=== PATIENT | female | born 1950 | race Caucasian/White ===

== ENCOUNTER 2020-03-20 08:18 | Emergency (ER) | payer MEDICARE, BC ==
[2020-03-20 08:26] VITALS: RESP 18; TEMP 98.5
[2020-03-20] MEDS ORDERED: KETOROLAC 15 MG/ML 1 ML VIAL IVP STA (08:50)
[2020-03-20] MEDS ORDERED: ORPHENADRINE 30 MG/ML 2 ML VIAL IVP STA (08:50)
[2020-03-20] MEDS ORDERED: SODIUM CHLORIDE 0.9% 1,000 ML IV STA (08:50)
--- NOTE | 2020-03-20 08:54 | ED ---
Back Pain HPI - General Chief Complaint: Back Pain/Injury Stated Complaint: back pain Time Seen by Provider: 03/20/20 08:35 Source: patient, family, RN notes reviewed Limitations: no limitations - History of Present Illness Initial Comments: This is a 71-year-old female history of lumbar fusion of L4-L5 no history kidney stones no recent trauma or infections who states that around 2 AM this morning while doing a crossword puzzle started developing severe right side flank pain the pain is intermittent. He states at rest is 4/10 dull in nature and is worse it's 89/10. He gets worse with certain movements. No dysuria hematuria no other symptoms reported MD Complaint: back pain - Related Data Home Medications Medication Instructions Recorded Confirmed Cholecalciferol [Vitamin D3] 2,000 unit PO DAILY 11/27/14 03/20/20 Metoprolol Succinate [Toprol XL] 25 mg PO DAILY 11/27/14 03/20/20 Albuterol Sulfate [Ventolin HFA] 2 puff INHALATION Q6H PRN 03/20/20 03/20/20 Calcium Carbonate [Calcium] 1,200 mg PO DAILY 03/20/20 03/20/20 Famotidine 20 mg PO BID 03/20/20 03/20/20 HYDROcodone/APAP 5-325MG [[place] 1 tab PO Q4HR PRN 03/20/20 03/20/20 5-325] Mometasone Inhalr 220 Mcg/Puff 1 puff INHALATION RT-DAILY 03/20/20 03/20/20 [Asmanex] Montelukast Sodium [Singulair] 10 mg PO HS 03/20/20 03/20/20 Vitamin B Complex/ C 1 tab PO DAILY 03/20/20 03/20/20 Previous Rx's Medication Instructions Recorded Hydrocodone/Acetaminophen [[place] 1 each PO Q6HR PRN #20 tab 03/20/20 5-325] Ibuprofen 800 mg PO Q6HR PRN #20 tablet 03/20/20 Orphenadrine [Norflex] 100 mg PO Q12H #7 tablet.er 03/20/20 Allergies Allergy/AdvReac Type Severity Reaction Status Date / Time No Known Allergies Allergy Verified 03/20/20 09:43 Review of Systems ROS Statement: Those systems with pertinent positive or pertinent negative responses have been documented in the HPI. ROS Other: All systems not noted in ROS Statement are negative. Past Medical History Past Medical History: Asthma, Hypertension History of Any Multi-Drug Resistant Organisms: None Reported Additional Past Surgical History / Comment(s): BILAT CATRACTS REMOVED, 12-06-14 TOTAL LT KNEE ARTHROPLASTY. COONOSCOPY. EGD. LT EAR STAPEDECTOMY. spinal fusion. Past Psychological History: No Psychological Hx Reported Smoking Status: Never smoker Past Alcohol Use History: Occasional Past Drug Use History: None Reported - Past Family History Father Family Medical History: Cancer, Hypertension Additional Family Medical History / Comment(s): PROSTATE CA Mother Family Medical History: Hypertension, Myocardial Infarction (RI), Osteoarthritis (OA) General Exam - General Exam Comments Initial Comments: This a well-developed well-nourished awake alert oriented 3 female Limitations: no limitations General appearance: alert, anxious, in distress Head exam: Present: atraumatic, normocephalic, normal inspection Eye exam: Present: normal appearance, PERRL, EOMI. Absent: scleral icterus, conjunctival injection, periorbital swelling ENT exam: Present: normal exam, mucous membranes moist Neck exam: Present: normal inspection. Absent: tenderness, meningismus, lymphadenopathy Respiratory exam: Present: normal lung sounds bilaterally. Absent: respiratory distress, wheezes, rales, rhonchi, stridor Cardiovascular Exam: Present: regular rate, normal rhythm, normal heart sounds. Absent: systolic murmur, diastolic murmur, rubs, gallop, clicks GI/Abdominal exam: Present: soft, normal bowel sounds. Absent: distended, tenderness, guarding, rebound, rigid, bruit, pulsatile mass Extremities exam: Present: normal inspection, full ROM, normal capillary refill. Absent: tenderness, pedal edema, joint swelling, calf tenderness Back exam: Present: normal inspection, other (100 range of motion secondary to her pain). Absent: full ROM, tenderness, CVA tenderness (R), CVA tenderness (L), muscle spasm, paraspinal tenderness Neurological exam: Present: alert, oriented X3, CN II-XII intact Psychiatric exam: Present: normal affect, normal mood Skin exam: Present: warm, dry, intact, normal color. Absent: rash Course Vital Signs 03/20/20 03/20/20 08:22 10:48 Temperature 98.5 F Pulse Rate 70 60 Respiratory 18 18 Rate Blood Pressure 172/87 169/70 O2 Sat by Pulse 99 97 Oximetry Medical Decision Making - Medical Decision Making Reevaluation patient finds she feels improved she would like to go home she'll be discharged on appropriate medication she is a follow-up with her doctor and return when necessary - Lab Data Result diagrams: 03/20/20 09:00 03/20/20 09:00 Lab Results 03/20/20 03/20/20 03/20/20 Range/Units 09:00 09:00 09:39 WBC 10.1 (3.8-10.6) k/uL RBC 5.41 H (3.80-5.40) m/uL Hgb 15.1 (11.4-16.0) gm/dL Hct 47.6 H (34.0-46.0) % MCV 88.0 (80.0-100.0) fL MCH 28.0 (25.0-35.0) pg MCHC 31.9 (31.0-37.0) g/dL RDW 13.5 (11.5-15.5) % Plt Count 222 (150-450) k/uL MPV 6.9 Neutrophils % 58 % Lymphocytes % 33 % Monocytes % 5 % Eosinophils % 2 % Basophils % 0 % Neutrophils # 5.9 (1.3-7.7) k/uL Lymphocytes # 3.4 (1.0-4.8) k/uL Monocytes # 0.5 (0-1.0) k/uL Eosinophils # 0.2 (0-0.7) k/uL Basophils # 0.0 (0-0.2) k/uL Sodium 137 (137-145) mmol/L Potassium 4.4 (3.5-5.1) mmol/L Chloride 106 (98-107) mmol/L Carbon Dioxide 25 (22-30) mmol/L Anion Gap 6 mmol/L BUN 17 (7-17) mg/dL Creatinine 0.70 (0.52-1.04) mg/dL Est GFR (CKD-EPI)AfAm >90 (>60 ml/min/1.73 sqM) Est GFR (CKD-EPI)NonAf 87 (>60 ml/min/1.73 sqM) Glucose 101 H (74-99) mg/dL Calcium 9.3 (8.4-10.2) mg/dL Magnesium 2.0 (1.6-2.3) mg/dL Total Bilirubin 0.8 (0.2-1.3) mg/dL AST 31 (14-36) U/L ALT 43 H (4-34) U/L Alkaline Phosphatase 67 (38-126) U/L Creatine Kinase 48 (30-135) U/L Total Protein 7.1 (6.3-8.2) g/dL Albumin 4.2 (3.5-5.0) g/dL Lipase 31 (23-300) U/L Urine Color Yellow Urine Appearance Cloudy H (Clear) Urine pH 7.5 (5.0-8.0) Ur Specific [place] 1.014 (1.001-1.035) Urine Protein Negative (Negative) Urine Glucose (UA) Negative (Negative) Urine Ketones Negative (Negative) Urine Blood Negative (Negative) Urine Nitrite Negative (Negative) Urine Bilirubin Negative (Negative) Urine Urobilinogen <2.0 (<2.0) mg/dL Ur Leukocyte Esterase Small H (Negative) Urine RBC 1 (0-5) /hpf Urine WBC 3 (0-5) /hpf Ur Squamous Epith Cells 1 (0-4) /hpf Urine Mucus Rare H (None) /hpf - Radiology Data Radiology results: report reviewed (Imaging reviewed no acute findings), image reviewed Disposition Clinical Impression: Mechanical back pain Disposition: HOME SELF-CARE Condition: Good Instructions (If sedation given, give patient instructions): Acute Low Back Pain (ED) Prescriptions: Ibuprofen 800 mg PO Q6HR PRN #20 tablet PRN Reason: Pain Hydrocodone/Acetaminophen [[place] 5-325] 1 each PO Q6HR PRN #20 tab PRN Reason: Pain Orphenadrine [Norflex] 100 mg PO Q12H #7 tablet.er Is patient prescribed a controlled substance at d/c from ED?: Yes When asked, does pt state using other controlled substances?: No If prescribed controlled substance>3 days was MAPS reviewed?: Yes If opioid is for acute pain is fill amount 7 days or less?: Yes If Rx opioid, was Start Talking consent form obtained?: Yes Referrals: Robb Bobo MD [Primary Care Provider] - 1-2 days
[2020-03-20 09:13] LABS: Basophils % (A) 0 %; Eosinophils # (A) 0.2 k/uL (0-0.7); Eosinophils % (A) 2 %; HCT 47.6 % (34.0-46.0); HGB 15.1 gm/dL (11.4-16.0); Lymphocytes # (A) 3.4 k/uL (1.0-4.8); Lymphocytes % (A) 33 %; MCHC 31.9 g/dL (31.0-37.0); Mean Platelet Volume 6.9; Monocytes # (A) 0.5 k/uL (0-1.0); Monocytes % (A) 5 %; Neutrophils # (A) 5.9 k/uL (1.3-7.7); Neutrophils % (A) 58 %; Platelet Count 222 k/uL (150-450); RBC 5.41 m/uL (3.80-5.40); RDW 13.5 % (11.5-15.5); WBC 10.1 k/uL (3.8-10.6)
[2020-03-20 09:26] LABS: ALT 43 U/L (4-34); AST 31 U/L (14-36); African American GFR (CKD) >90 (>60 ml/min/1.73 sqM); Albumin 4.2 g/dL (3.5-5.0); Alkaline Phosphatase 67 U/L (38-126); Anion Gap 6 mmol/L; Blood Urea Nitrogen 17 mg/dL (7-17); Calcium 9.3 mg/dL (8.4-10.2); Carbon Dioxide 25 mmol/L (22-30); Chloride 106 mmol/L (98-107); Creatine Kinase 48 U/L (30-135); Glucose 101 mg/dL (74-99); Lipase 31 U/L (23-300); Non-African American GFR(CKD) 87 (>60 ml/min/1.73 sqM); Potassium 4.4 mmol/L (3.5-5.1); Sodium 137 mmol/L (137-145); Total Bilirubin 0.8 mg/dL (0.2-1.3); Total Protein 7.1 g/dL (6.3-8.2)
[2020-03-20 09:52] LABS: Appearance,Urine Cloudy (Clear); Bilirubin,Urine Negative (Negative); Blood,Urine Negative (Negative); Color,Urine Yellow; Glucose,Urine (UA) Negative (Negative); Ketones,Urine Negative (Negative); Leukocyte Esterase,Urine Small (Negative); Mucus,Urine Rare /hpf; Nitrite,Urine Negative (Negative); PH, Urine 7.5 (5.0-8.0); Protein,Urine Negative (Negative); RBC,Urine 1 /hpf (0-5); Specific Gravity,Urine 1.014 (1.001-1.035); Squamous Epithelial Cell,Urine 1 /hpf (0-4); Urobilinogen,Urine <2.0 mg/dL (<2.0); WBC,Urine 3 /hpf (0-5)
[2020-03-20] MEDS ORDERED: HYDROmorphone 1 MG/ML 1 ML SYRINGE IVP STA (10:34)
--- NOTE | 2020-03-20 11:28 | CT ---
EXAMINATION TYPE: CT abdomen pelvis wo con DATE OF EXAM: 03/20/2020 HISTORY: Right sided flank pain CT DLP: 976.2 mGycm. Automated Exposure Control for Dose Reduction was Utilized. TECHNIQUE: CT scan of the abdomen and pelvis is performed without oral or IV contrast. COMPARISON: NONE FINDINGS: Within the limitations of a non-contrast study, the following observations are made. LUNG BASES: Tiny left pleural effusion and/or pleural thickening mild bibasilar linear scarring and/o r atelectasis. Mild cardiomegaly. LIVER/GB: Liver is heterogeneously hypodense consistent with diffuse fatty infiltration. Prominent ri ght hepatic lobe noted. Gallbladder surgically absent. PANCREAS: Mild generalized fat replaced atrophy. SPLEEN: Nonspecific subcentimeter hypodense lesion centrally in the spleen representing benign. ADRENALS: Small 1.4 cm left adrenal mass coronal image 70 contains fat and soft tissue density presum ed benign myolipoma. KIDNEYS: No renal stones or hydronephrosis is present bilaterally. BOWEL: Small size hiatal hernia. Few scattered small sigmoid colonic diverticula. No suspicious small or large bowel dilatation. GENITAL ORGANS: The uterus surgically absent. Scattered bilateral pelvic phleboliths. LYMPH NODES: No greater than 1cm abdominal or pelvic lymph nodes are appreciated. OSSEOUS STRUCTURES: Grade 1 anterolisthesis L4 on L5. Posterior interpedicular rods and screws transf ix these levels. Moderate to severe narrowing in both hip joints with mild to moderate acetabular spu rring bilaterally. OTHER: No significant additional abnormality is seen. IMPRESSION: No renal stones or hydronephrosis is seen bilaterally. No acute findings identified.
[2020-03-20 13:22] VITALS: BP 159/78; PULSE 68
== END 2020-03-20 13:21 | disposition home or self-care (01) ==
LOC: EC 08:18
DX: M54.9 Dorsalgia, unspecified (principal); I10 Essential (primary) hypertension; J45.909 Unspecified asthma, uncomplicated; Z79.899 Other long term (current) drug therapy; Z79.51 Long term (current) use of inhaled steroids; Z98.1 Arthrodesis status; Z96.652 Presence of left artificial knee joint
CPT/HCPCS: 36415; 80053; 82550; 83690; 83735; 85025; 81001; 74176; 99284; 96374; 96375 ×2; 96361 ×4; J2360; J1170; J1885

== ENCOUNTER → 2021-01-29 | Outpatient (CLI) | payer MEDICARE, BC ==
--- NOTE | 2021-01-29 15:53 | CT ---
EXAMINATION TYPE: CT lumbar spine wo con DATE OF EXAM: 01/29/2021 3:42 PM COMPARISON: None HISTORY: chronic low back pain, no injury CT DLP: 1485.4 mGycm Automated exposure control for dose reduction was used. Unenhanced CT of the lumbar spine was performed. Bone and soft tissue window settings are submitted as well as coronal and sagittal reconstructions. L1-L2: Normal disc space height. No disc herniation protrusion or central stenosis. No facet joint arthropathy. No evidence for foraminal encroachment. L2-L3: Normal disc space height. No disc herniation protrusion or central stenosis. No facet joint arthropathy. No evidence for foraminal encroachment. L3-L4: Mild degenerative disc space narrowing with posterior disc bulge. Effacement ventral thecal sa c. Bilateral lateral recess stenosis and mild central stenosis suggested. Bilateral foraminal encroac hment. L4-L5: Mild degenerative disc space narrowing. Grade 1 anterolisthesis L4 and L5 measuring 3.2 mm. Po stoperative change of lumbar laminectomy with pedicular screws in place. Streak artifact limits evalu ation. No definite evidence for recurrent or residual disease. L5-S1: Normal disc space height. No disc herniation protrusion or central stenosis. No facet joint arthropathy. No evidence for foraminal encroachment. IMPRESSION: 1. Postoperative changes of lumbar laminectomy and fusion at L4-5 with grade 1 anterolisthesis of L4 on L5. No evidence for recurrent or residual disease. 2. Bilateral lateral recess stenosis and mild central stenosis at L3-4.
== END | disposition home or self-care (01) ==
LOC: RADCTMAIN 15:04
PROVIDERS: ATTEND Neurological Surgery
DX: M48.061 Spinal stenosis, lumbar region without neurogenic claudication (principal); M43.16 Spondylolisthesis, lumbar region; Z98.1 Arthrodesis status
CPT/HCPCS: 72131

== ENCOUNTER → 2021-05-21 | Outpatient (CLI) | payer MEDICARE, BC ==
--- NOTE | 2021-05-21 12:57 | P.CON ---
Consult Note - . Consult date: 05/21/21 Assessment/Plan:: HISTORY OF PRESENT ILLNESS: 71 year old female as a referral from Dr. Cooper with a history of lumbar degenerative joint disease, spondylolisthesis, disc bulges with facet arthropathy presents today for an evaluation. Patient states her lower back pain is in the center of her lumbar spine, 1 out of 10 in intensity on a good day, but elevates as high as 6 out of 10 in intensity with activity. States the pain is dull and achy in character without radiation. Pain is provoked with standing, walking, stair climbing and bending. Pain is relieved with medications, heat, physical therapy missed with massage in 2017 and 2018, chi ropractic treatments in 2018 and rest. PMH: Asthma, HTN, OA, GERD, Vitamin D Deficiency, L knee DJD PSH: L knee TKA, Lumbar laminectomy with fusion of the L3-L4 SH: Denies x 3 FH: Non contributory All: NKDA Meds: See list REVIEW OF ORGAN SYSTEMS: CONSTITUTIONAL: No fevers or chills. No recent weight loss. HEENT: No visual acuity loss, eye pain, difficulties with hearing. No nosebleeds. No difficulty swallowing. RESPIRATORY: Denies any troubles with breathing or dyspnea on exertion. CARDIOVASCULAR: Denies any chest pain, palpitations, or recent heart attacks. GASTROINTESTINAL: Denies fatty food intolerance. Has change in bowel habits and gas bloat. GENITOURINARY: Denies any blood in urine. Has increased urinary frequency. NEUROLOGICAL: + numbness and tingling along the distal extremities. No seizure disorders or headaches. MUSCULOSKELETAL: + back pain SKIN: No skin cancer. No rash. PSYCHIATRIC: Denies current depression or suicidal thoughts. ENDOCRINE: Denies current thyroid disorders. Denies any blood sugar glucose intolerance. HEME/LYMPHATIC: Denies any lumps and bumps around the neck. History of deep venous thrombosis. ALLERGY/IMMUNOLOGY: No immunoglobulin therapy. No immune deficiencies. BREAST: Denies current breast lumps, pain or nipple discharge. Physical Examinations : Constitutional : Cooperative , not in acute distress . HEENT: Neck supple. No Lymphadenopathy. Normal thyroid size . Eyes no ptosis , no icterus, no photophobia . Hearing intact. Normal oropharynx. No Thrush. Respiratory : Chest clear to auscultations bilaterally. No wheezing. No rhonchi. Cardiovascular : Regular rate and rhythm , S1 / S2. No S3 . No S4. Gastrointestinal : Abdomen soft. No tenderness. Bowel sounds x 4. No organomegaly . Genitourinary : Deferred. Neurologic : Cranial nerve II to XII intact. No focal neurological deficits. Psychiatric : alert & oriented x 3. Matching mood & appropriate affect. Judgment & insight intact. Lymphatic No Lymphadenopathy. Musculoskeletal : Cervical Spine Motor strength in the deltoid and biceps: Normal right side. Normal Left side Motor strength biceps and the wrist extensors: Normal right side . Normal left side Motor strength in the triceps muscle: Normal right side. Normal left side Deep tendon reflexes: Normal at the biceps. Normal at Brachioradialis. Normal at triceps Cervical facet loading test: positive bilaterally Spurling test: positive bilaterally Neck distraction test: positive bilaterally Whit sign: positive bilaterally Lumbar spine Motor strength lower extremities ,thigh and legs 5/5 Right side , 5/5 Left side Deep tendon reflexes : Normal Knee Jerk. Normal Ankle Jerk Moderate vertebral body tenderness over the L4 and L5 Lumbar facet Loading Test: positive Right / positive Left at bilateral L3-L4 and L4 -L5 Range of motion of the lumbar spine Flexion 30 degrees, extension 10 degrees Straight Leg Raise test: Left/ Right positive at degree Tim test: positive right / positive left. Severe tenderness over the Sacroiliac joint on the Right / Left sides Gaenslen test: positive bilaterally Seated flexion test: positive bilaterally. Assessment/ Plan : Recommendation LESI of the L4 to L5 Discussed a series of injections may be needed to attain sufficient pain relief Also discussed that patient may need facet blocks of the medial branches up until RFA as needed Risks, benefits of procedure discussed and patient verbalized understanding Discontinue aspirin 3 days prior to procedure All questions answered I have spent greater than 50 minutes on patient care today. Dr Benson was available by phone for the evaluation of this patient. The time was used to review the medical records including relevant urine studies and Prescription history (MAPs), review of the available imaging, evaluation and examination of the patient, coordination of care with the medical staff and if applicable referring physicians, as well as creation of the medical record PQRS Measure Charge Sheet Home Medications: Ambulatory Orders Cholecalciferol [Vitamin D3] 2,000 unit PO DAILY 11/27/14 Metoprolol Succinate [Toprol XL] 25 mg PO DAILY 08/19/15 Albuterol Sulfate [Ventolin HFA] 2 puff INHALATION Q6H PRN 03/20/20 Calcium Carbonate [Calcium] 1,200 mg PO DAILY 03/20/20 Famotidine 20 mg PO BID 03/20/20 HYDROcodone/APAP 5-325MG [[place] 5-325] 1 tab PO Q4HR PRN 03/20/20 Hydrocodone/Acetaminophen [[place] 5-325] 1 each PO Q6HR PRN #20 tab 03/20/20 Ibuprofen 800 mg PO Q6HR PRN #20 tablet 03/20/20 Mometasone Inhalr 220 Mcg/Puff [Asmanex] 1 puff INHALATION RT-DAILY 03/20/20 Montelukast Sodium [Singulair] 10 mg PO HS 03/20/20 Orphenadrine [Norflex] 100 mg PO Q12H #7 tablet.er 03/20/20 Vitamin B Complex/ C 1 tab PO DAILY 03/20/20
[2021-05-21 13:45] VITALS: BP 148/89; PULSE 66; RESP 18; TEMP 97.9
== END ==
LOC: PNWHC3 11:56
PROVIDERS: ATTEND Physician Assistant Medical
DX: M54.16 Radiculopathy, lumbar region (principal); M47.816 Spondylosis without myelopathy or radiculopathy, lumbar region; M43.16 Spondylolisthesis, lumbar region; J45.909 Unspecified asthma, uncomplicated; I10 Essential (primary) hypertension; M19.90 Unspecified osteoarthritis, unspecified site; E55.9 Vitamin D deficiency, unspecified; Z79.899 Other long term (current) drug therapy; Z79.51 Long term (current) use of inhaled steroids; Z87.891 Personal history of nicotine dependence
CPT/HCPCS: 99211

== ENCOUNTER 2021-06-18 08:43 | Day surgery (SDC) | payer MEDICARE, BC ==
[2021-06-17 11:50] VITALS: BMI 33.4
[~2021-06-18 08:43] MED LIST: LACTATED RINGERS 1,000 ML IV SCH; LIDOCAINE 1% (10MG/ML) FOR IV START INTRADERMA PRN
[2021-06-18 09:10] VITALS: TEMP 98
[2021-06-18] MEDS ORDERED: MIDAZOLAM 2 MG/2 ML VIAL ONE (09:41)
[2021-06-18] MEDS ORDERED: methylPREDNISolone ACETATE 40 MG/ML 1 ML VIAL ONE (09:41)
[2021-06-18] MEDS ORDERED: IOPAMIDOL M200 10 ML VIAL ONE (09:41)
[2021-06-18] MEDS ORDERED: fentaNYL (PF) 50 MCG/ML 2 ML AMP ONE (09:41)
--- NOTE | 2021-06-18 10:02 | P.PCN ---
Date of Procedure: 06/18/21 Procedure(s) Performed: PREOP DIAGNOSIS: 1- Lumbar postlaminectomy syndrome. POSTOP DIAGNOSIS:1- Lumbar postlaminectomy syndrome. PROCEDURE: 1-Caudal epidural steroid injection with epidurolysis and epidurogram under fluoroscopic guidance. (Fluoroscopy images available in the radiology Department ) 2-caudal epidurogram. ANESTHESIA: Local with 1% lidocaine 3 ml ,and moderate sedation, with Versed 2 mg and fentanyl 100 g. EBL: Minimal. PROCEDURE INDICATION: The patient with post-laminectomy syndrome with low back pain and radiculopathy radiating down in both legs, here for a caudal epidural steroid injection with epidurolysis. PROCEDURE DESCRIPTION: The patient was seen and identified in the preoperative area. Risks, benefits, complications, and alternatives were discussed with the patient. The patient agreed to proceed with the procedure and signed the consent. IV was started, and vital signs were stable. Patient was taken to the OR and time out was completed. The patient was placed in the prone position on procedure table and a pillow was placed under the abdomen to reduce lumbar lordosis. The lumbosacral area was prepped and draped in the usual sterile fashion. Vital signs were closely monitored during the procedure. lateral view and the anterior-posterior plates of the sacrum were identified with infiltration of the area overlying the sacral hiatus with 1% lidocaine .A 17 gauge RK epidural needle was used to advance through the sacral hiatus into the caudal epidural space. Omnipaque 180 dye. 2cc was injected and the position of the needle was verified to be in the midline. A Racz catheter was introduced into the epidural space and was advanced towards the L5-S1 interspace under direct fluoroscopic guidance. Multiple passes were made with the catheter for lysis of epidural adhesions. Depo-Medrol 40 mg with 3ml of preservative free Lidocaine 1% and 5 ml of preservative free normal saline was injected slowly. Additional spread was seen to L4 under fluoroscopy. The needle and the catheter were withdrawn intact. EPIDUROGRAM: Omnipaque 180 mg dye 2 ml was injected with spread of the dye into the caudal epidural space and with spread cutoff at L5 prior to epidurolysis. Post epidurolysis dye 2 ml was injected and spread was seen to L3-4.There was further spread of the solution together with the dye above the L3 COMPLICATIONS: None. DISPOSITION / PLANS: The patient was placed in a supine position and transferred to the recovery area in a stable condition for observation and was discharged from the recovery room after meeting discharge criteria. Home discharge instructions given to the patient by the staff. The patient was reexamined prior to discharge. The patient will schedule a follow up in the clinic in 2-4 weeks. note= patient was scheduled to have lumbar epidural steroid injection at L4 5, but during the interview I found out that the patient had lumbar laminectomy and fusion surgery Lumbar area , for this reason ,if we do lumbar epidural steroid injection, interlaminar approach ,this will have increased the risk,for post dural puncture headache, and also, if we do caudal epidural with lysis of epidural adhesions, it will be more beneficial to the patient, discussed this option with the patient she agreed with proceeding .
[2021-06-18] MEDS ORDERED: IV FLUID CONTINUATION 700 ML IV ONE (10:04)
[2021-06-18 10:06] VITALS: RESP 16
--- NOTE | 2021-06-18 10:06 | FL ---
EXAMINATION TYPE: FL guided pain mgmt statistic DATE OF EXAM: 06/18/2021 HISTORY: Fluoroscopy time 6 seconds of fluoroscopy provided. IMPRESSION: 1. Fluoroscopy time.
[2021-06-18 10:29] VITALS: BP 167/87; PULSE 66
== END 2021-06-18 10:34 | disposition home or self-care (01) ==
LOC: ORPAIN 08:43
PROVIDERS: ATTEND Specialist
DX: M96.1 Postlaminectomy syndrome, not elsewhere classified (principal); G96.12 Meningeal adhesions (cerebral) (spinal)
CPT/HCPCS: 62323; J2250; J1030; J3010; Q9966; C1894; 99152

== ENCOUNTER → 2021-07-11 | Outpatient (CLI) | payer MEDICARE, BC ==
[2021-07-11 11:33] LABS: INR 0.9 (<1.2); Partial Thromboplastin Time 22.1 sec (22.0-30.0)
[2021-07-11 11:43] LABS: Appearance,Urine Cloudy (Clear); Bacteria,Urine Moderate /hpf; Bilirubin,Urine Negative (Negative); Blood,Urine Negative (Negative); Color,Urine Yellow; Glucose,Urine (UA) Negative (Negative); Ketones,Urine Negative (Negative); Leukocyte Esterase,Urine Negative (Negative); Mucus,Urine Rare /hpf; Nitrite,Urine Negative (Negative); Protein,Urine Negative (Negative); RBC,Urine <1 /hpf (0-5); Squamous Epithelial Cell,Urine 11 /hpf (0-4); Urobilinogen,Urine <2.0 mg/dL (<2.0); WBC,Urine 1 /hpf (0-5)
[2021-07-11 16:43] LABS: African American GFR (CKD) 99.6 (60.0-200.0); Albumin 4.1 g/dL (3.8-4.9); Albumin/Globulin Ratio 1.41 (1.60-3.17); Anion Gap 12.5 mmol/L (10.00-18.00); Blood Urea Nitrogen 9.1 mg/dL (9.0-27.0); Calcium 9.1 mg/dL (8.7-10.3); Carbon Dioxide 21.5 mmol/L (20.0-27.5); Globulin 2.9 g/dL (1.6-3.3); Potassium 4.3 mmol/L (3.5-5.5); Total Bilirubin 0.2 mg/dL (0.30-1.20)
[2021-07-11 17:51] LABS: HCT 44.4 % (37.2-46.3); HGB 14.1 g/dL (12.0-15.0); MCH 28.1 pg (27.0-32.0); MCHC 31.8 g/dL (32.0-37.0); MCV 88.6 fL (80.0-97.0); Mean Platelet Volume 10.9 fL (9.5-12.2); NRBC Per 100 WBC 0 /100 WBCS (0.0-0.0); Platelet Count 253 X 10*3/uL (140-440); RBC 5.01 X 10*6/uL (4.10-5.20); RDW 12.6 % (11.5-14.5)
== END | disposition home or self-care (01) ==
LOC: LABPAT 10:39
PROVIDERS: ATTEND Orthopaedic Surgery Sports Medicine
DX: Z01.812 Encounter for preprocedural laboratory examination (principal)
CPT/HCPCS: 80053; 81001; 85027; 85610; 85730; 87070; 93005

== ENCOUNTER 2021-07-23 06:15 | Day surgery (SDC) | payer MEDICARE, BC ==
[2021-07-21 14:18] VITALS: BMI 34.2
[~2021-07-23 06:15] MED LIST changes: +ACETAMINOPHEN TAB 500 MG TAB PO PRN; +GABAPENTIN 300 MG CAP PO PRN; -LACTATED RINGERS 1,000 ML IV SCH; +MELOXICAM 7.5 MG TAB PO PRN; +ONDANSETRON 4 MG/2 ML VIAL IVP ONE; +ONDANSETRON 4 MG/2 ML VIAL IVP PRN; +TRANEXAMIC ACID IN NACL,ISO-OS 1,000 MG in SALINE 1 100ML.BAG IVPB PRN
[2021-07-23] MEDS: LACTATED RINGERS 1,000 ML IV SCH ×4 (06:52→23:49)
[2021-07-23] MEDS ORDERED: DEXAMETHASONE SOD PHOSPHATE 4 MG/ML 1 ML VIAL IVP ONE (07:11)
[2021-07-23] MEDS ORDERED: MIDAZOLAM 2 MG/2 ML VIAL IVP ONE (07:26)
[2021-07-23] MEDS ORDERED: TRANEXAMIC ACID IN NACL,ISO-OS 1,000 MG/100 ML BAG ONE (08:03)
[2021-07-23] MEDS ORDERED: LIDOCAINE 1% INJ 10MG/ML (20 ML MDV) ONE (08:03)
[2021-07-23] MEDS ORDERED: fentaNYL (PF) 50 MCG/ML 2 ML AMP ONE (08:03)
[2021-07-23] MEDS ORDERED: HYDROmorphone (PF) 1 MG/ML ONE (08:03)
[2021-07-23] MEDS ORDERED: MIDAZOLAM 2 MG/2 ML VIAL ONE (08:03)
[2021-07-23] MEDS ORDERED: PROPOFOL 10 MG/ML 20 ML VIAL IV ONE (08:03)
[2021-07-23] MEDS ORDERED: DEXAMETHASONE SOD PHOSPHATE 4 MG/ML 1 ML VIAL ONE (08:03)
[2021-07-23] MEDS ORDERED: ROPIVACAINE 5 MG/ML 30 ML VIAL ONE (08:03)
[2021-07-23] MEDS ORDERED: ceFAZolin 3,000 MG in SODIUM CHLORIDE 0.9% IRRIGATIO 3,000 ML IRRIGATION ONE (08:41)
[2021-07-23] MEDS ORDERED: ROPIVACAINE 0.2%-NS ON-Q PUMP 2 MG/ML EACH MISCELLANE ONE (10:16)
[2021-07-23] MEDS ORDERED: ONDANSETRON 4 MG/2 ML VIAL IVP PRN (10:19)
[2021-07-23] MEDS ORDERED: MAGNESIUM HYDROXIDE 2,400 MG/10 ML CUP PO PRN (10:19)
[2021-07-23] MEDS ORDERED: hydrOXYzine pamoate 25 MG CAP PO PRN (10:19)
[2021-07-23] MEDS ORDERED: HYDROmorphone 0.5 MG/0.5 ML SYRINGE IVP PRN ×2 (10:19)
[2021-07-23] MEDS ORDERED: diazePAM 5 MG TAB PO PRN (10:19)
[2021-07-23] MEDS ORDERED: NALOXONE 0.4 MG/ML 1 ML VIAL IV PRN (10:19)
[2021-07-23] MEDS ORDERED: traMADol 50 MG TAB PO PRN (10:19)
[2021-07-23] MEDS ORDERED: NA PHOS,M-B/NA PHOS,DI-BA 133 ML ENEMA RECTAL PRN (10:19)
[2021-07-23] MEDS ORDERED: HYDROmorphone 0.2 MG/1 ML SYRINGE IVP PRN (10:19)
[2021-07-23] MEDS ORDERED: ACETAMINOPHEN TAB 325 MG TAB PO PRN (10:19)
[2021-07-23] MEDS ORDERED: bisacodyL 10 MG SUPP RECTAL PRN (10:19)
[2021-07-23] MEDS ORDERED: HYDROcodone/APAP 7.5-325MG 1 EACH TAB PO PRN (10:24)
[2021-07-23] MEDS: HYDROmorphone 0.5 MG/0.5 ML SYRINGE IVP PRN ×3 (10:57→14:27)
--- NOTE | 2021-07-23 11:05 | XR ---
EXAMINATION TYPE: XR knee limited RT DATE OF EXAM: 07/23/2021 COMPARISON: NONE HISTORY: 71-year-old female evaluation for postoperative abnormality in alignment TECHNIQUE: 2 views FINDINGS: 2 views demonstrating placement of right total knee arthroplasty. Both distal femoral and proximal ti bial components of prosthesis are well seated without periprosthetic fracture. Alignment grossly isaiah omic. Small knee joint effusion. Anterior soft tissue swelling with scattered soft tissue air as well as intra-articular air related to recent operation. IMPRESSION: Uncomplicated postoperative appearance right total knee arthroplasty.
--- NOTE | 2021-07-23 11:10 | OP ---
OPERATIVE REPORT DATE OF PROCEDURE: 07/23/2021 SURGEON: Alan Deras M.D. PILE DRIVING SUPERINTENDENT: Samuel Alvarado PA-C PREOPERATIVE DIAGNOSIS: Right knee osteoarthrosis. POSTOPERATIVE DIAGNOSIS: Right knee osteoarthrosis. OPERATION: Right total knee arthroplasty. ANESTHESIA: Spinal with sedation. ESTIMATED BLOOD LOSS: 100 mL. TOURNIQUET: Tourniquet time was 51 minutes at 250 mmHg. COMPLICATIONS: None apparent. DRAINS: None. DISPOSITION: Post-Anesthesia Care Unit. INDICATIONS: Nila is a very pleasant 71-year-old female with a long-standing history of right knee pain. History and physical examination are consistent with advanced right knee osteoarthrosis. She has been through significant non-operative management up to this point. Further treatment options were discussed and she decided to go forward with right total knee arthroplasty. The risks of procedure were discussed with her in detail. These risks include but are not limited to risk of infection, nerve damage, bleeding, pain, and a small risk of deep vein thrombosis which could lead to fatal pulmonary embolism. There is also a risk of loosening of the implant which could require revision operation. The patient understands these risks. All of her questions were answered to her satisfaction. Appropriate informed consent was obtained. DESCRIPTION OF THE PROCEDURE: The patient was identified in the preoperative holding area. Surgical site was marked by both the patient and myself. She was given 2 grams of Ancef IV for prophylactic purposes. She was then transferred to the operative suite. She was placed supine on the operating room table. Spinal anesthetic was then administered and dosed per the anesthesia department without apparent complication. Examination under anesthesia was then performed. The patient was 2 to 3 degrees shy of full extension. She had 100 degrees of flexion. The medial collateral ligament, lateral collateral ligament and posterior cruciate ligaments were stable. A tourniquet was then placed high on the right upper thigh, well padded in preparation for surgery. The patient's right lower extremity was then prepped and draped in the usual sterile fashion. A standard surgical pause was undertaken to ensure that we were operating on the correct site and that appropriate preoperative antibiotics had been given. All staff in the room were in agreement and we proceeded. The outlines of the patella were marked with a surgical pen. A planned 12 cm vertical incision centered over the patella was marked with a surgical pen. The leg was then exsanguinated with an Esmarch dressing. The knee was then flexed and the tourniquet was inflated to 250 mmHg. Total tourniquet time for the procedure was 51 minutes. Incision was then made with a 10 blade scalpel. Dissection was carried down sharply to the overlying fascia. Great care was taken to minimize the skin flaps. The knee was then exposed using a standard medial parapatellar approach. A small cuff of quadriceps tendon was then left for suturing. She was in a bit of varus preoperatively. A standard medial release was then made. Superficial medial collateral ligament was dissected off of the bone and around to the posterior aspect of the proximal tibia. The medial meniscus was then excised as well. The lateral meniscus was also released anteriorly. The leg was then externally rotated. The patella was everted. The knee was flexed. Retractors were then placed to protect the collateral ligaments. I then proceeded to remove the infrapatellar fat pad. This was excised sharply tangentially with the fibers of the patellar tendon. I then proceeded to remove the peripheral osteophytes. This was done with a rongeur. I then proceeded with the distal femoral resection. She did have near-full extension. A planned 9 mm resection was then done. The femoral canal was then entered in the midline of the femur approximately 10 mm anterior to the origin of the posterior cruciate ligament. The tessa was then advanced down the center of the femur and placed intramedullary. Based on the preoperative radiographs, the angle between the anatomic and mechanical axis of the femur was approximately 4 to 5 degrees. The valgus angle of the distal femoral cutting guide was then set at 4 degrees for the right knee. The distal femoral cutting guide was then advanced over the intramedullary tessa. This was seated firmly against the femur. I then, as mentioned, planned to take 9 mm off the distal femur. The cutting block was then secured onto the femur with pins. The jig was then removed. The distal femoral cut was made through the slot of the block. The pins were then removed. The distal femoral cutting block was removed. The accuracy of the distal femoral cuts was checked with two flat bars. I then proceeded with femoral sizing. The posterior referencing sizing guide was held firmly against the resected distal surface of the femur. The posterior condyles were resting on the posterior plane of the guide. The sizing stylus was then placed onto the anterior femur. The size was measured as a size 7. I then assessed for femoral rotation. The plan was for 3 degrees of external rotation. Three degrees of external rotation was placed onto the jig. The holes were then marked. I then confirmed the rotation by three separate methods. This was done using epicondylar axis as well as Whitesides line and posterior referencing. It was deemed that the external rotation was proper. I then went forward with placing the femoral cutting block. This was placed over the previously placed pin holes. The Rommel wing was then placed onto the anterior slots to ensure that we would not notch the anterior femur with the anterior femoral cut. I then proceeded with the anterior femoral cut. This was flush with the anterior cortex of the femur. The posterior cut was then made by the anterior chamfer cut and then the posterior chamfer cut. The cutting block was then removed. Throughout the resection, the collateral ligaments were protected with retractors. I then placed a trial size 7 femur. It was slightly wide, but the narrow fit very nicely and it fit flush with the distal end of the femur. The drill holes were then made. I then proceeded with the tibial cut. I planned for a cruciate-retaining the knee. The guide was placed and set for varus, valgus and for slope. The height was set for an approximate 2 mm resection from the medial tibial plateau, which was the lower side. I was happy with the alignment and amount of resection. The cutting block was then pinned to the proximal tibia. The alignment tessa was removed. The proximal tibia was resected with a reciprocating saw. Again this was done with retractors protecting the collateral ligaments as well as the posterior cruciate ligament. I then proceeded to evaluate the flexion and extension gaps. A 10 mm block was then placed. The flexion and extension gaps were equal. I then proceeded with resection of the posterior osteophytes. She had fairly minimal posterior osteophytes. This was done using a curved osteotome. This resected the posterior osteophytes, and posterior capsule stripping was done off the posterior aspect of the femur at this time. The osteophytes were then removed. I then proceeded with resection of the patella. The thickness of patella was measured using the caliper. The thickness was 22 mm. The thickness of the anticipated patellar dome was taken into account. Resection was then performed and confirmed to be equal in 4 quadrants using a caliper. Approximately 14 mm of bone remained after the resection. A 29 x 8 standard patellar trial was then placed. The holes were drilled. The trial was then placed. I then proceeded with sizing the tibial plate. A size D tibial plate fit very nicely. I then placed the trial femur, the tibial tray and patellar button. A 10 mm trial tibial insert was also placed. The components fit very nicely. She had full extension and flexion. The extension and flexion gaps were equal and stable to both varus and valgus stress. The patella tracked appropriately. The tibial tray rotation was then marked with a Bovie. This was externally rotated properly. I then proceeded with tibial preparation. I first drilled the femoral holes and removed the femoral component. The tibial tray was then set for proper external rotation as well as mediolateral placement onto the tibia. It was then pinned into place. I then proceeded with punching the keel. I then decided to proceed with cementing of all of our components. The knee was thoroughly irrigated with sterile saline solution via pulse lavage. The lateral geniculate artery was identified and cauterized. All blood was removed from around the tibia, femur and patella with pulse lavage. I then proceeded with cementing. Two packs of antibiotic bone cement were prepared on the back table by the surgical instruments inspector. I then proceeded with cementing of the tibia first. The cement was impacted into the keel as well as deeply seated into the bone. A second coat of cement was then placed. The tibia was then impacted into place. Excess cement was removed with Sagrario's and jokers. I then proceeded with cementing of the femoral component. The femoral component was also cemented using standard technique. Excess cement was removed. A 10 mm trial insert was then placed into the knee. It was brought into full extension with a constant axial load placed until the cement had hardened. The patellar component was then cemented. This was held firmly with a compressive device until the cement had dried. When the cement had dried, the knee was taken out of extension. All excess cement was removed from around the prosthesis. I then trialed with a 10 mm insert. Flexion and extension gaps were appropriate. The knee was stable. It came into full extension. I decided to go forward with a 10 mm medial-congruent, cross-linked, cruciate-retaining tibial insert. Polyethylene was then placed onto the tibial tray and locked into place. The knee was then reduced. The knee was again further irrigated with sterile saline solution with antibiotic added. The tourniquet was then deflated. Total tourniquet time for the procedure was 51 minutes at 250 mmHg. Final components were a Zac Persona size 7 narrow cruciate-retaining femoral component, a size D tibial tray, a 10 mm medial- congruent cruciate-retaining polyethylene insert, and a 29 x 8 patella. I then proceeded with closure. Again the knee was thoroughly irrigated. The quadriceps tendon and the medial retinaculum were reapproximated with #2 Ethibond suture. The extensor mechanism was then closed with a running #2 Quill suture. Subcutaneous tissues were then closed with 2-0 Vicryl interrupted suture. The skin was closed with a running 3-0 Quill suture. Dermabond was applied to the incision. Sterile compressive dressing was then applied. All sponge and needle counts were deemed correct prior to closure. The patient tolerated procedure without apparent complication. She was transferred to the recovery room in stable condition. MMODL / IJN: [id number] /
[2021-07-23] MEDS ORDERED: MAG PO PRN (16:42)
[2021-07-23] MEDS ORDERED: [UNRECOGNIZED DRUG - OTHER] PO PRN (16:42)
[2021-07-23] MEDS ORDERED: ALBUTEROL HFA INHALER INHALATION PRN (16:42)
[2021-07-23] MEDS ORDERED: ALGINC PO PRN (16:42)
[2021-07-23] MEDS ORDERED: SOD BICARB PO PRN (16:42)
[2021-07-23] MEDS ORDERED: ALUMINUM PO PRN (16:42)
[2021-07-23] MEDS ORDERED: IPRATROPIUM-ALBUTEROL 3 ML NEB INHALATION PRN (16:48)
[2021-07-23] MEDS: HYDROcodone/APAP 7.5-325MG 1 EACH TAB PO PRN ×2 (16:52→23:52)
--- NOTE | 2021-07-23 17:43 | P.CONS ---
History of Present Illness - Reason for Consult Consult date: 07/23/21 - History of Present Illness History of Presenting Illness: Patient is a very pleasant 71-year-old female with a past medical history of hypertension, mild persistent asthma use his rescue inhaler typically once weekly, GERD, and osteoarthritis. Patient is currently admitted under orthopedic surgery team anticipated status post right total knee arthroplasty completed by Dr. Deras. We have been consulted for continued medical management throughout patient's hospitalization. patient was seen and fully evaluated at bedside. She reports postoperative pain is completely managed at this time. She denies experiencing any postoperative nausea or vomiting and is currently eating dinner at this time. Patient reports previous orthopedic surgeries and denies any history of DVTs or PEs. She reports she has ambulated to restroom with walker since surgical procedure and has also been urinating without difficulty. Pt denies any headache, lightheadedness, dizziness, chest pain, palpitations, shortness of breath, abdominal pain, nausea, vomiting, Review of systems: Pertinent positives and negatives as discussed in HPI, a complete review of systems was performed and all other systems are negative. Physical exam: Vital signs reviewed and stable. General: Nontoxic, no distress and appears stated age. Derm: Skin warm and dry, normal coloration for ethnicity. Head: Atraumatic, normocephalic and symmetric. Eyes: EOMs intact, no lid lag, and anicteric sclera Mouth: no lip lesions, mucus membranes moist Cardiovascular: regular rate and rhythm with normal S1S2, no murmur, positive posterior tibial pulses bilaterally, and cap refill < 2 seconds. Lungs: Respirations even, regular, and unlabored on room air. Lungs CTA bilaterally, no rhonchi, no rales, no wheezing, and no accessory muscle usage. Abdominal: soft, nontender to palpation, no guarding, no appreciable organomega ly Ext:. No gross muscle atrophy, BLE pitting edema, no contractures. RLE postoperative dressing/bandage and ice packs in place. Neuro: Speech clear, face symmetrical and CN II-XII grossly intact with no noted focal neuro deficits Psych: Alert and oriented to person, place, time, and situation. Appropriate and pleasant affect. Assessment and Plan of Care: Postoperative hypoxia requiring intermittent oxygen supplementation Mild Intermittent Asthma -Oxygenation to be administered as needed to maintain SPO2 equal to or greater than 92% -Monitor Pulse-oximetry -Duonebs as needed for SOB and/or wheezing -Incentive Spirometry, encourage use 10-15 times hourly while awake. Status post right total knee arthroplasty -Management per primary admitting orthopedic surgery team including DVT prophylaxis, pain management, weightbearing, postoperative wound care, and PT/OT. -DVT prophylaxis with aspirin 81 mg twice a day at this time. -Incentive Spirometry, encourage use 10-15 times hourly while awake. Hypertension Monitor vital signs and continue daily medication regimen with metoprolol. GERD -Continue Pepcid 20 mg BID. Thank you for allowing us to participate in the care of this pleasant patient. Do not hesitate to contact us with questions. Someone can be reached from the [facility] hospitalist group all hours of the day at [phone] or via Satomi. Benoit Elise NP rendered care for this patient independently, reviewed the findings and plan as documented in the note above. I did not physically speak with or examine the patient on this date. Past Medical History Past Medical History: Asthma, GERD/Reflux, Hypertension, Osteoarthritis (OA) History of Any Multi-Drug Resistant Organisms: None Reported Past Surgical History: Appendectomy, Back Surgery, Cholecystectomy, Hysterectomy, Joint Replacement Additional Past Surgical History / Comment(s): BILAT CATARACTS REMOVED, left knee replaced, colonoscopy,EGD,. LT EAR STAPEDECTOMY, spinal fusion Past Anesthesia/Blood Transfusion Reactions: Previous Problems w/ Anesthesia Additional Past Anesthesia/Blood Transfusion Reaction / Comm: had epidural w/last TKA that wasn't effective Past Psychological History: No Psychological Hx Reported Smoking Status: Former smoker Past Alcohol Use History: Occasional Additional Past Alcohol Use History / Comment(s): STARTED SMOKING AT AGE 16 QUIT AT AGE 28 SMOKED 1.5 PPD. Past Drug Use History: None Reported - Past Family History Father Family Medical History: Cancer, Hypertension Additional Family Medical History / Comment(s): PROSTATE CA Mother Family Medical History: Hypertension, Myocardial Infarction (SC), Osteoarthritis (OA) Medications and Allergies Home Medications Medication Instructions Recorded Confirmed Type Metoprolol Succinate [Toprol XL] 25 mg PO DAILY 11/27/14 07/23/21 History Albuterol Sulfate [Ventolin HFA] 2 puff INHALATION Q6H PRN 03/20/20 07/23/21 History Calcium Carbonate [Calcium] 1,200 mg PO DAILY 03/20/20 07/23/21 History Famotidine 20 mg PO BID 03/20/20 07/23/21 History Montelukast Sodium [Singulair] 10 mg PO HS 03/20/20 07/23/21 History Budesonide [Pulmicort Flexhaler] 180 mcg INHALATION BID 06/18/21 07/23/21 History Acetaminophen [Tylenol Extra 500 mg PO Q6H 07/21/21 07/23/21 History Strength] Mag/Aluminum/Sod Bicarb/Alginc 2 tab PO DIRECTED PRN 07/21/21 07/23/21 History [Gaviscon 80-14.2 mg Tab Chew] Melatonin 20 mg PO HS 07/21/21 07/23/[address] 40 mg PO TH 07/21/21 07/23/21 History Vitamin B Complex 1 each PO DAILY 07/21/21 07/23/21 History polyethylene glycoL 3350 [Miralax] 17 gm PO HS 07/21/21 07/23/21 History Allergies Allergy/AdvReac Type Severity Reaction Status Date / Time No Known Allergies Allergy Verified 07/23/21 06:54 Physical Exam Osteopathic Statement: *. No significant issues noted on an osteopathic structural exam other than those noted in the History and Physical/Consult. Vitals: Vital Signs Temp Pulse Pulse Resp BP BP Pulse Ox 07/23/21 15:01 97.9 F 71 18 147/82 93 L 07/23/21 14:00 64 16 132/69 96 07/23/21 13:00 74 16 124/62 96 07/23/21 12:30 70 16 139/65 99 07/23/21 12:00 60 16 121/61 96 07/23/21 11:45 63 16 117/66 95 07/23/21 11:30 66 16 127/56 95 07/23/21 11:00 64 16 140/60 94 L 07/23/21 10:45 56 L 16 145/67 100 07/23/21 10:33 53 L 16 130/73 97 07/23/21 10:20 66 16 147/67 95 07/23/21 10:05 97.3 F L 54 L 14 146/63 99 07/23/21 07:44 62 16 162/71 98 07/23/21 07:00 96 07/23/21 06:59 98.1 F 64 18 182/74 94 L Intake and Output 07/23/21 07/23/21 07/23/21 06:59 14:59 22:59 Intake Total 200 901 Output Total 100 Balance 200 801 Intake: IV 200 901 Output: Estimated Blood Loss 100 Other: Weight 102.3 kg 102.3 kg
--- NOTE | 2021-07-23 18:35 | P.ANPRN ---
Procedure Note - Anesthesia - Nerve Block Performed Right Adductor Canal Infusion Time Out Performed: Yes Date of Procedure: 07/23/21 Procedure Start Time: :23 Procedure Stop Time: :35 Location of Patient: PreOp Indication: Acute Post-Operative Pain, Requested by Surgeon Sedation Type: Sedate with meaningful contact maintained Preparation: Sterile Prep, Sterile Dressing Position: Supine Catheter: Indwelling Needle Types: Pajunk Needle Gauge: 21 Ultrasound used to visualize needle placement: Yes Ultrasound used to observe medication spread: Yes Blood Aspirated: No Pain Paresthesia on Injection Noted: No Resistance on Injection: Normal Image Stored and Saved: Yes Events: Uneventful and Well Tolerated (ropi .5% 20cc)
--- NOTE | 2021-07-23 18:37 | P.ANPRN ---
Procedure Note - Anesthesia - Nerve Block Performed Right Anishack Single Time Out Performed: Yes Date of Procedure: 07/23/21 Procedure Start Time: 07:36 Procedure Stop Time: 07:40 Location of Patient: PreOp Indication: Acute Post-Operative Pain, Requested by Surgeon Sedation Type: Sedate with meaningful contact maintained Preparation: Sterile Prep Position: Supine Needle Types: Pajunk Needle Gauge: 21 Ultrasound used to visualize needle placement: Yes Ultrasound used to observe medication spread: Yes Blood Aspirated: No Pain Paresthesia on Injection Noted: No Resistance on Injection: Normal Image Stored and Saved: Yes Events: Uneventful and Well Tolerated (ropi .5% 20cc plus dexamethasone 4mg)
[2021-07-23] MEDS ORDERED: SENNOSIDES-DOCUSATE SODIUM 1 EACH TAB PO SCH (21:00)
[2021-07-23] MEDS ORDERED: MELATONIN 5 MG TABLET PO SCH (21:00)
[2021-07-23] MEDS ORDERED: MONTELUKAST 10 MG TAB PO SCH (21:00)
[2021-07-23] MEDS: ASPIRIN 81 MG PO SCH (21:46)
[2021-07-23] MEDS: FAMOTIDINE 20 MG TAB PO SCH (21:46)
[2021-07-23] MEDS: FLUTICASONE 110 MCG INHALER INHALATION SCH (23:03)
[2021-07-24 01:41] VITALS: TEMP 98.1
[2021-07-24] MEDS: HYDROcodone/APAP 7.5-325MG 1 EACH TAB PO PRN ×2 (05:54→11:47)
[2021-07-24] MEDS: LACTATED RINGERS 1,000 ML IV SCH ×2 (06:16→07:12)
[2021-07-24] MEDS: FAMOTIDINE 20 MG TAB PO SCH (07:09)
[2021-07-24] MEDS: ASPIRIN 81 MG PO SCH (07:09)
[2021-07-24 07:38] VITALS: BP 121/54; PULSE 63; RESP 18
[2021-07-24] MEDS: FLUTICASONE 110 MCG INHALER INHALATION SCH (08:24)
[2021-07-24] MEDS ORDERED: METOPROLOL SUCCINATE (ER) 25 MG TAB.ER.24H PO SCH (09:00)
[2021-07-24] MEDS ORDERED: CALCIUM CARBONATE 500 MG CHEWABLE PO SCH (09:00)
[2021-07-24] MEDS ORDERED: NON FORMULARY DRUG (Vitamin B Complex [Vitamin B Complex] 1 EACH Capsule) PO SCH (09:00)
[2021-07-24 10:45] LABS: Basophils # (A) 0.03 X 10*3/uL (0.00-0.10); Basophils % (A) 0.2 %; Eosinophils # (A) 0.01 X 10*3/uL (0.04-0.35); Eosinophils % (A) 0.1 %; HCT 38.3 % (37.2-46.3); HGB 12.2 g/dL (12.0-15.0); Immature Grans, Automated 0.4 %; Lymphocytes # (A) 1.31 X 10*3/uL (0.90-5.00); Lymphocytes % (A) 9.3 %; MCH 28.6 pg (27.0-32.0); MCHC 31.9 g/dL (32.0-37.0); MCV 89.7 fL (80.0-97.0); Mean Platelet Volume 10.9 fL (9.5-12.2); Monocytes # (A) 1.28 X 10*3/uL (0.20-1.00); Monocytes % (A) 9.1 %; NRBC Per 100 WBC 0 /100 WBCS (0.0-0.0); Neutrophils # (A) 11.37 X 10*3/uL (1.80-7.70); Neutrophils % (A) 80.9 %; Platelet Count 213 X 10*3/uL (140-440); RBC 4.27 X 10*6/uL (4.10-5.20); RDW 12.7 % (11.5-14.5); WBC 14.06 X 10*3/uL (4.50-10.00)
[2021-07-24 10:46] LABS: RBC Morphology NORMAL
[2021-07-24] MEDS ORDERED: MULTIVITAMINS, THERA 1 EACH TAB PO SCH (12:00)
--- NOTE | 2021-07-24 12:20 | P.PN ---
Subjective Progress Note Date: 07/24/21 History of Presenting Illness: Patient is a very pleasant 71-year-old female with a past medical history of hypertension, mild persistent asthma use his rescue inhaler typically once weekly, GERD, and osteoarthritis. Patient is currently admitted under orthopedic surgery team anticipated status post right total knee arthroplasty completed by Dr. Deras. We have been consulted for continued medical management throughout patient's hospitalization. Physical exam: Patient was seen and fully evaluated at bedside this morning. She is postoperative day one and appears to be doing well. Patient was sitting up in the chair and has ice pack placed to knee. Patient reports mild discomfort to popliteal fossa, otherwise patient reports control of postoperative pain at this time. Postoperative Hgb stable. Pt has been ambulating in room and down halls with walker. She denies any headache, lightheadedness, dizziness, chest pain, palpitations, SOB, or any other complaints. Pt is medically stable for discharge once cleared by orthopedic surgery. Vital signs reviewed and stable. General: Nontoxic, no distress and appears stated age. Derm: Skin warm and dry, normal coloration for ethnicity. Head: Atraumatic, normocephalic and symmetric. Eyes: EOMs intact, no lid lag, and anicteric sclera Mouth: no lip lesions, mucus membranes moist Cardiovascular: regular rate and rhythm with normal S1S2, no murmur, positive posterior tibial pulses bilaterally, and cap refill < 2 seconds. Lungs: Respirations even, regular, and unlabored on room air. Lungs CTA bilaterally, no rhonchi, no rales, no wheezing, and no accessory muscle usage. Abdominal: soft, nontender to palpation, no guarding, no appreciable organo megaly Ext:. No gross muscle atrophy, BLE pitting edema, no contractures. RLE postoperative dressing/bandage and ice packs in place. Neuro: Speech clear, face symmetrical and CN II-XII grossly intact with no noted focal neuro deficits Psych: Alert and oriented to person, place, time, and situation. Appropriate and pleasant affect. Assessment and Plan of Care: Postoperative hypoxia requiring intermittent oxygen supplementation Mild Intermittent Asthma -Oxygenation to be administered as needed to maintain SPO2 equal to or greater than 92% -Monitor Pulse-oximetry -Duonebs as needed for SOB and/or wheezing -Incentive Spirometry, encourage use 10-15 times hourly while awake. Status post right total knee arthroplasty -Management per primary admitting orthopedic surgery team including DVT prophylaxis, pain management, weightbearing, postoperative wound care, and PT/OT. -DVT prophylaxis with aspirin 81 mg twice a day at this time. -Incentive Spirometry, encourage use 10-15 times hourly while awake. Hypertension Monitor vital signs and continue daily medication regimen with metoprolol. GERD -Continue Pepcid 20 mg BID. Thank you for allowing us to participate in the care of this pleasant patient. Do not hesitate to contact us with questions. Someone can be reached from the [facility] hospitalist group all hours of the day at [phone] or via Blurr. Benoit Elise NP rendered care for this patient independently, reviewed the findings and plan as documented in the note above. I did not physically speak with or examine the patient on this date. Objective - Vital Signs Vital signs: Vital Signs Temp 98.1 F 07/24/21 07:37 Pulse 63 07/24/21 07:37 Resp 18 07/24/21 07:37 BP 121/54 07/24/21 07:37 Pulse Ox 93 L 07/24/21 07:37 Intake & Output 07/23/21 07/24/21 07/24/21 18:59 06:59 18:59 Intake Total 901 Output Total 100 Balance 801 Weight 102.3 kg Intake: IV 901 Output: Estimated Blood Loss 100 Other: Voiding Method Toilet # Voids 1 - Labs CBC & Chem 7: 07/24/21 05:11
--- NOTE | 2021-07-24 13:14 | P.DS ---
Providers Expected date of discharge: 07/24/21 Attending physician: Alan Deras Consults: 07/23/21 10:19 Consult Physician Routine Consulting Provider: Diane Vasquez Consult Reason/Comments: post op medical management Do you want consulting provider notified?: Yes Primary care physician: Minerva Cooper MD - Discharge Diagnosis(es) (1) Degenerative arthritis Patient was admitted to the OR on 07/23/21 to undergo a right total knee arthroplasty. She had failed conservative measures as an outpatient and desired to proceed with elective surgery after given informed consent. She underwent the above procedure which she tolerated well without complication. Postoperative hospital course has remained without complication. On day of discharge she is afebrile, vital signs stable, labs within acceptable ranges, tolerating by mouth meds and diet, voiding without difficulty, positive flatus, denies abdominal pain or calf pain, pain is controlled on oral pain medication and has no new c omplaints. Wound is benign, neurovascular status is intact, calf is soft and nontender, abdomen soft and nontender. Review of systems is negative for numbness, tingling, fever, chills, chest pain, shortness of breath, nausea, vomiting, dizziness, headaches, slurred speech or other. Current Visit: No Status: Acute Priority: Medium Procedures: Right TKA Patient Condition at Discharge: Good Plan - Discharge Summary Discharge Rx Participant: Yes New Discharge Prescriptions: New Aspirin [Adult Low Dose Aspirin EC] 81 mg PO BID #60 tab HYDROcodone/APAP 7.5-325MG [[place] 7.5-325] 1 - 2 each PO Q6HR PRN #42 tab PRN Reason: Pain Docusate [Colace] 100 mg PO BID #60 capsule Continue Metoprolol Succinate [Toprol XL] 25 mg PO DAILY Albuterol Sulfate [Ventolin HFA] 2 puff INHALATION Q6H PRN PRN Reason: Anaphylaxis Montelukast Sodium [Singulair] 10 mg PO HS Calcium Carbonate [Calcium] 1,200 mg PO DAILY Famotidine 20 mg PO BID Omeprazole Dr 40 mg PO TH Vitamin B Complex 1 each PO DAILY Melatonin 20 mg PO HS Mag/Aluminum/Sod Bicarb/Alginc [Gaviscon 80-14.2 mg Tab Chew] 2 tab PO DIRECTED PRN PRN Reason: Heartburn Budesonide [Pulmicort Flexhaler] 180 mcg INHALATION BID polyethylene glycoL 3350 [Miralax] 17 gm PO HS Acetaminophen [Tylenol Extra Strength] 500 mg PO Q6H Discharge Medication List Metoprolol Succinate [Toprol XL] 25 mg PO DAILY 11/27/14 [History] Albuterol Sulfate [Ventolin HFA] 2 puff INHALATION Q6H PRN 03/20/20 [History] Calcium Carbonate [Calcium] 1,200 mg PO DAILY 03/20/20 [History] Famotidine 20 mg PO BID 03/20/20 [History] Montelukast Sodium [Singulair] 10 mg PO HS 03/20/20 [History] Budesonide [Pulmicort Flexhaler] 180 mcg INHALATION BID 06/18/21 [History] Acetaminophen [Tylenol Extra Strength] 500 mg PO Q6H 07/21/21 [History] Mag/Aluminum/Sod Bicarb/Alginc [Gaviscon 80-14.2 mg Tab Chew] 2 tab PO DIRECTED PRN 07/21/21 [History] Melatonin 20 mg PO HS 07/21/21 [History] Omeprazole Dr 40 mg PO TH 07/21/21 [History] Vitamin B Complex 1 each PO DAILY 07/21/21 [History] polyethylene glycoL 3350 [Miralax] 17 gm PO HS 07/21/21 [History] Aspirin [Adult Low Dose Aspirin EC] 81 mg PO BID #60 tab 07/24/21 [Rx] Docusate [Colace] 100 mg PO BID #60 capsule 07/24/21 [Rx] HYDROcodone/APAP 7.5-325MG [[place] 7.5-325] 1 - 2 each PO Q6HR PRN #42 tab 07/24/21 [Rx] Follow up Appointment(s)/Referral(s): Minerva Cooper MD [Primary Care Provider] - 07/29/21 2:30 pm Alan Deras MD [STAFF PHYSICIAN] - 08/05/21 2:50 pm Activity/Diet/Wound Care/Special Instructions: Activity: As tolerated. Take breaks as needed. Diet: Heart healthy and carb consistent diet. Avoid salts, or foods with hidden salts such as canned or boxed foods and frozen dinners. Extra salt makes your heart work harder and traps the fluid in your body for longer. Special Instructions: Take all of your medications as directed and remember to keep all of your doctor's appointments and follow-up as needed. Wishing you a speedy recovery!!! Enjoy your time at home with your beautiful pup David!!! Thank you for allowing us to participate in your care, it was truly a pleasure having you for our patient!!! Weight bear as tolerated with walker at all times May shower after 3 days if no bleeding Keep wound clean and dry Take meds as directed F/U with Dr. Deras in office Discharge Disposition: HOME WITH HOME HEALTH SERVICES
--- NOTE | 2021-07-24 14:15 | P.PN ---
Progress Note - Text The patient is status post right adductor canal catheter placement. The catheter was placed for postoperative pain control, status post total right knee arthroplasty. Ropivacaine 0.2% is infusing at 8 mLs per hour. The patient has no complaints of right lower extremity numbness or weakness. Patient's VAS score is 3 -10. The patient's pain is located in the posterior aspect of her knee. She reports no pain in the anterior medially aspects of the knee. Assessment: Patient's adductor canal catheter is in place and working appro priately. Plan: continue infusion and adjust it as needed.
== END 2021-07-24 15:06 | disposition home health service (06) ==
LOC: OR 06:15 → 4SSUR 14:14 → OR 07-24 15:06
PROVIDERS: ATTEND Orthopaedic Surgery Sports Medicine
DX: M17.11 Unilateral primary osteoarthritis, right knee (principal); I10 Essential (primary) hypertension; K21.9 Gastro-esophageal reflux disease without esophagitis; J45.909 Unspecified asthma, uncomplicated; M19.90 Unspecified osteoarthritis, unspecified site; Z87.891 Personal history of nicotine dependence; Z79.899 Other long term (current) drug therapy; G89.18 Other acute postprocedural pain
CPT/HCPCS: 27447; 97161; 64999; 64448; 76942; 85025; 88300; 73560; C1776; C1713; J2250; J1100; J0690 ×2; J2405; J2001; J3010; J1170 ×2; J2795 ×2; J2704

== ENCOUNTER → 2021-07-31 | Outpatient (CLI) | payer MEDICARE, BC ==
--- NOTE | 2021-07-31 12:50 | US ---
EXAMINATION TYPE: US venous doppler duplex LE RT DATE OF EXAM: 07/31/2021 12:35 PM COMPARISON: NONE CLINICAL HISTORY: M25.561 PAIN IN RIGHT KNEE. SIDE PERFORMED: Right TECHNIQUE: The lower extremity deep venous system is examined utilizing real time linear array sonog ana with graded compression, doppler sonography and color-flow sonography. VESSELS IMAGED: Common Femoral Vein Deep Femoral Vein Greater Saphenous Vein * Femoral Vein Popliteal Vein Small Saphenous Vein * Proximal Calf Veins (* superficial vessels) Right Leg: Negative for DVT IMPRESSION: 1. Right lower extremity ultrasound negative for deep venous thrombosis.
== END | disposition home or self-care (01) ==
LOC: RADUSWWP 12:17
PROVIDERS: ATTEND Orthopaedic Surgery Sports Medicine
DX: M25.561 Pain in right knee (principal)

== ENCOUNTER 2021-09-29 11:43 | Day surgery (SDC) | payer MEDICARE, BC ==
[2021-09-28 10:41] VITALS: BMI 34.2
[~2021-09-29 11:43] MED LIST changes: -ACETAMINOPHEN TAB 500 MG TAB PO PRN; -GABAPENTIN 300 MG CAP PO PRN; +LACTATED RINGERS 1,000 ML IV SCH; -MELOXICAM 7.5 MG TAB PO PRN; -ONDANSETRON 4 MG/2 ML VIAL IVP ONE; -ONDANSETRON 4 MG/2 ML VIAL IVP PRN; -TRANEXAMIC ACID IN NACL,ISO-OS 1,000 MG in SALINE 1 100ML.BAG IVPB PRN
[2021-09-29 12:03] VITALS: PULSE 61; TEMP 97.3
[2021-09-29] MEDS ORDERED: IOPAMIDOL M200 10 ML VIAL ONE (12:30)
[2021-09-29] MEDS ORDERED: MIDAZOLAM 2 MG/2 ML VIAL ONE (12:30)
[2021-09-29] MEDS ORDERED: fentaNYL (PF) 50 MCG/ML 2 ML AMP ONE (12:30)
[2021-09-29] MEDS ORDERED: methylPREDNISolone ACETATE 40 MG/ML 1 ML VIAL ONE (12:30)
--- NOTE | 2021-09-29 12:48 | P.PCN ---
Date of Procedure: 09/29/21 Procedure(s) Performed: PREOP DIAGNOSIS: 1- Lumbar postlaminectomy syndrome. POSTOP DIAGNOSIS:1- Lumbar postlaminectomy syndrome. PROCEDURE: 1-Caudal epidural steroid injection with epidurolysis and epidurogram under fluoroscopic guidance. (Fluoroscopy images available in the radiology Department ) 2-caudal epidurogram. ANESTHESIA: Local with 1% lidocaine 3 ml ,and moderate sedation, with Versed 2 mg and fentanyl 100 g. EBL: Minimal. PROCEDURE INDICATION: The patient with post-laminectomy syndrome with low back pain and radiculopathy radiating down in both legs, here for a caudal epidural steroid injection with epidurolysis. PROCEDURE DESCRIPTION: The patient was seen and identified in the preoperative area. Risks, benefits, complications, and alternatives were discussed with the patient. The patient agreed to proceed with the procedure and signed the consent. IV was started, and vital signs were stable. Patient was taken to the OR and time out was completed. The patient was placed in the prone position on procedure table and a pillow was placed under the abdomen to reduce lumbar lordosis. The lumbosacral area was prepped and draped in the usual sterile fashion. Vital signs were closely monitored during the procedure. lateral view and the anterior-posterior plates of the sacrum were identified with infiltration of the area overlying the sacral hiatus with 1% lidocaine .A 17 gauge RK epidural needle was used to advance through the sacral hiatus into the caudal epidural space. Omnipaque 180 dye. 2cc was injected and the position of the needle was verified to be in the midline. A Racz catheter was introduced into the epidural space and was advanced towards the L5-S1 interspace under direct fluoroscopic guidance. Multiple passes were made with the catheter for lysis of epidural adhesions. Depo-Medrol 40 mg with 3ml of preservative free Lidocaine 1% and 5 ml of preservative free normal saline was injected slowly. Additional spread was seen to L4 under fluoroscopy. The needle and the catheter were withdrawn intact. EPIDUROGRAM: Omnipaque 180 mg dye 2 ml was injected with spread of the dye into the caudal epidural space and with spread cutoff at L5 prior to epidurolysis. Post epidurolysis dye 2 ml was injected and spread was seen to L3-4.There was further spread of the solution together with the dye above the L3 COMPLICATIONS: None. DISPOSITION / PLANS: The patient was placed in a supine position and transferred to the recovery area in a stable condition for observation and was discharged from the recovery room after meeting discharge criteria. Home discharge instructions given to the patient by the staff. The patient was reexamined prior to discharge. The patient will schedule a follow up in the clinic in 2-4 weeks.
[2021-09-29] MEDS ORDERED: IV FLUID CONTINUATION 600 ML IV ONE (12:51)
[2021-09-29 12:55] VITALS: RESP 16
[2021-09-29 13:06] VITALS: BP 158/78
--- NOTE | 2021-09-29 14:18 | FL ---
EXAMINATION TYPE: FL guided pain mgmt statistic DATE OF EXAM: 09/29/2021 HISTORY: Fluoroscopy time 5 seconds of fluoroscopy provided. IMPRESSION: 1. Fluoroscopy time.
== END 2021-09-29 13:22 | disposition home or self-care (01) ==
LOC: ORPAIN 11:43
PROVIDERS: ATTEND Specialist
DX: M96.1 Postlaminectomy syndrome, not elsewhere classified (principal); M54.16 Radiculopathy, lumbar region
CPT/HCPCS: 62264; J2250; J1030; J3010; Q9966; C1894

== ENCOUNTER → 2021-10-19 | Outpatient (CLI) | payer MEDICARE, BC ==
[2021-10-19 09:58] VITALS: BP 162/85; PULSE 56; RESP 16; TEMP 98.5
--- NOTE | 2021-10-19 10:14 | P.PAINPG ---
PQRS Measure Charge Sheet Comment: A 71 yr old female with a history of severe and chronic low back pain secondary to lumbar degenerative disc diseases and lumbar spondylosis with facet arthropathy presents today for evaluation status post caudal MAU with lysis. She experienced 90% pain relief x 3 days s/p procedure. Pain level is currently at 1/10 in intensity, waxes & wanes in intensity, dull & achy but provoked as high as 8/10 with lifting, bending or laying supine. Pain is alleviated with medications, topicals, injections, home based stretching regimen, heat, repositioning and rest. Interventional pain procedures completed include Cauda MAU w lysis Patient is currently on [place], ASA Patient denies any side effects of the medication(s), denies excessive drowsiness or sleepiness, denies suicidal ideation and reports that the current pain medication is helping to control the pain and improve activities of daily living. Patient denies any motor or sensory deficits. Patient denies any fever or night sweats, denies any change in the bowel movements or urination. Physical Examination: -Constitutional: Cooperative. Not in acute distress . - Neurologic: Cranial nerve II to XII intact. No focal neurological deficits. - Psychatric: Alert & oriented x 3. Matching mood & appropriate affect. Judgment and insight intact. - Musculoskeletal: Cervical spine: Muscle bulk/ tone/ strength in the bilateral upper extremities normal Vertebral body tenderness to palpation over Spurling test positive Distraction test positive Facet loading test positive Thoracic spine Muscle bulk / tone/ strength in the bilateral paraspinal muscles normal Vertebral body tender to palpation over Facet loading test positive Lumbar spine: Motor bulk/ tone/ strength lower extremities , thigh and legs : 5/5 Deep tendon reflexes : Normal Knee Jerk. Normal Ankle Jerk . Vertebral body tenderness to palpation over L5 Lumbar Facet Loading Test positive Straight Leg Raise: positive at 30 degrees right side/ left side Gaenslen's Test positive Sacral spine : Severe tenderness over the Sacroiliac joint: right side / left side Range of motion: Flexion of the lumbar spine <60 degrees Range of motion: Extension of the lumbar spine <20 degrees Gaenslen's Test positive Ethan's Test positive Tim test: positive right side / left side Thigh Thrust Test Sacral Thrust Test Assessment and plan: Chronic low back pain secondary to lumbar degenerative disc disease , lumbar spondylosis with facet arthropathy without myelopathy Recommendation of LESI L5-S1. May need a a series of injections, up to 3 within a 6 mo period, for optimal pain relief. Risks, benefits of procedure discussed and pt verbalized understanding. Denies anticoagulant use or medical h istory of diabetes. Chronic and current use of high-risk medication (Opioids). The patient was counseled about risk of opioid use, psychological risk associated with opioids and was orally counseled to not overuse , divert or sell medications. Pt is to store medication in a safe location. The patient is counseled against driving while using narcotic medications and also not to use alcohol or any illicit recreational drugs. Patient verbalized understanding that the lack of compliance will result in failure to renew narcotic prescription(s) as well as possible discharge from the clinic Diagnoses, prognosis and treatment options including but not limited to physical therapy, surgical interventions, interventional therapies and medication management including narcotics and adjuvant medication were discussed. All patient questions answered MAPS reviewed and it was appropriate. Narcotic agreement signed today 10/19/21 Prescription for [place] 5/325mg #60 w 1 refill. I have spent less than 30 minutes on patient care today. Dr Benson was available by phone for the evaluation of this patient. The time was used to review the medical records including relevant urine studies and Prescription history (MAPs), review of the available imaging, evaluation and examination of the patient, coordination of care with the medical staff and if applicable referring physicians, as well as creation of the medical record - Pain Location Lower Back Non-Pharmacological Interventions: Heat, Home Exercise, Position/Reposition, Relaxation Technique, Stretching Pharmacological Interventions: Epidural, PRN Medication PQRS Narrative: Hx Alcohol Use (MH) No Home Medications: Ambulatory Orders Metoprolol Succinate [Toprol XL] 25 mg PO DAILY 11/27/14 Albuterol Sulfate [Ventolin HFA] 2 puff INHALATION Q6H PRN 03/20/20 Calcium Carbonate [Calcium] 1,200 mg PO DAILY 03/20/20 Famotidine 20 mg PO BID 03/20/20 Montelukast Sodium [Singulair] 10 mg PO HS 03/20/20 Budesonide [Pulmicort Flexhaler] 180 mcg INHALATION BID 06/18/21 Acetaminophen [Tylenol Extra Strength] 500 mg PO Q6H PRN 07/21/21 Mag/Aluminum/Sod Bicarb/Alginc [Gaviscon 80-14.2 mg Tab Chew] 2 tab PO DIRECTED PRN 07/21/21 Melatonin [Melatonin ER] 20 mg PO HS 07/21/21 Vitamin B Complex 1 each PO DAILY 07/21/21 polyethylene glycoL 3350 [Miralax] 17 gm PO HS 07/21/21 Cholecalciferol [Vitamin D3 (25 Mcg = 1000 Iu)] 50 mcg PO DAILY 09/28/21 Docusate [Colace] 100 mg PO BID PRN 09/28/21 Omeprazole [PriLOSEC] 20 mg PO DAILY 09/28/21 HYDROcodone/APAP 7.5-325MG [[place] 7.5-325] 1 tab PO Q12H PRN 30 Days #42 tab 10/19/21 HYDROcodone/APAP 7.5-325MG [[place] 7.5-325] 1 tab PO Q12HR PRN 30 Days #42 tab 10/19/21 Controlled Substance Measures - Controlled Substance Measures Is patient prescribed a controlled substance at discharge?: Yes When asked, does pt state using other controlled substances?: No If prescribed controlled substance>3 days was MAPS reviewed?: Yes If Rx opioid, was Start Talking consent form obtained?: Yes Was information provided regarding opioid addiction?: Yes
== END ==
LOC: PNWHC3 09:36
PROVIDERS: ATTEND Specialist
DX: M51.36 Other intervertebral disc degeneration, lumbar region (principal); M47.816 Spondylosis without myelopathy or radiculopathy, lumbar region; G89.29 Other chronic pain; Z79.891 Long term (current) use of opiate analgesic; Z88.0 Allergy status to penicillin; Z91.018 Allergy to other foods; Z88.1 Allergy status to other antibiotic agents; Z88.8 Allergy status to other drugs, medicaments and biological substances; Z87.891 Personal history of nicotine dependence
CPT/HCPCS: 99211

== ENCOUNTER 2021-11-24 08:38 | Day surgery (SDC) | payer MEDICARE, BC ==
[2021-11-24] MEDS ORDERED: LACTATED RINGERS 1,000 ML IV SCH (08:51)
[2021-11-24] MEDS ORDERED: LIDOCAINE 1% (10MG/ML) FOR IV START INTRADERMA PRN (08:51)
[2021-11-24] MEDS ORDERED: LACTATED RINGERS 1,000 ML IV ONE (09:08)
[2021-11-24 09:12] VITALS: TEMP 98.3
[2021-11-24] MEDS ORDERED: IOPAMIDOL M200 10 ML VIAL ONE (09:45)
[2021-11-24] MEDS ORDERED: MIDAZOLAM 2 MG/2 ML VIAL ONE (09:45)
[2021-11-24] MEDS ORDERED: fentaNYL (PF) 50 MCG/ML 2 ML AMP ONE (09:45)
[2021-11-24] MEDS ORDERED: methylPREDNISolone ACETATE 80 MG/ML 1 ML VIAL ONE (09:45)
--- NOTE | 2021-11-24 09:56 | P.PCN ---
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 PROCEDURE 1. Lumbar epidural steroid injection under fluoroscopic guidance at the L5-S1 level. (Fluoroscopy imaging was available in radiology department) 2. Lumbar epidurogram. ANESTHESIA: moderate sedation with intravenous Versed 2 mg ,and fentanyle 100 Mcg Sedation start time : 945 Sedation end time : 953 EBL: Minimal PROCEDURE INDICATION: The patient with low back pain and radiculitis symptoms unresponsive to conservative treatment. Fluoroscopy was used to optimize visualization of the needle placement and to maximize safety. PROCEDURE DESCRIPTION / TECHNIQUE: The patient was seen and identified in the preoperative area. Risks, benefits, complications including but not limited to infections ,bleeding ,allergic reaction to the medications ,nerve damage and not complete pain releife , and alternatives were discussed with the patient. The patient agreed to proceed with the procedure and signed the consent. IV was started, and vital signs were stable. Patient was taken to the OR and time out was completed. The patient was placed in the prone position on procedure table and a pillow was placed under the abdomen to reduce lumbar lordosis. The lumbosacral area was prepped and draped in the usual sterile fashion.ere closely monitored during the procedure. Conscious sedation was used during the procedure to decrease patients anxiety. Vital signs was monitered during the entire procedure. Using anterior-posterior fluoroscopy, the L5-S1 interlaminar space was identified and the skin over this site was marked and then infiltrated with 1% lidocaine subcutaneously. Subsequently, a 20-gauge Tuohy epidural needle was inserted and advanced toward the epidural space using the ``Loss of resistance technique and guided by AP and lateral fluoroscopy. The correct needle position in the epidural space was verified with the injection of 2 mL of the water soluble contrast dye Isovue 200 contrast and observing an excellent epidurogram with the epidural spread of the dye, after negative aspiration for blood and CSF and in the absence of paresthesias. Again after negative aspiration, a 6 ml mixture containing 60 mg of Depo-medrol , and 2 ml of preservative free Normal Saline, and 2 ml of preservative free lidocaine 1% solution was injected and a washout of epidurogram was seen. Needle was withdrawn intact, skin was cleansed, and bandages were applied. COMPLICATIONS: None DISPOSITION / PLANS: The patient was placed in a supine position and transferred to the recovery area in a stable condition for observation. There was no evidence of lower extremity motor or sensory deficit after the procedure. Patient was discharged from the recovery room after meeting discharge criteria. Home discharge instructions were given to the patient by the staff. The patient was reexamined prior to discharge. The patient will schedule a follow up in the clinic in 2-4 weeks.
[2021-11-24] MEDS ORDERED: IV FLUID CONTINUATION 1,000 ML IV ONE (10:00)
--- NOTE | 2021-11-24 10:03 | FL ---
Intraoperative/procedural fluoroscopic services were provided. Total fluoroscopy time is 3 seconds wi th a total of 1 submitted images to PACS. Please see the operative/procedural note for further detail s.
[2021-11-24 10:17] VITALS: BP 130/75; PULSE 58; RESP 17
== END 2021-11-24 10:30 | disposition home or self-care (01) ==
LOC: ORPAIN 08:38
PROVIDERS: ATTEND Specialist
DX: M51.16 Intervertebral disc disorders with radiculopathy, lumbar region (principal); M96.1 Postlaminectomy syndrome, not elsewhere classified; Z79.899 Other long term (current) drug therapy; Z79.51 Long term (current) use of inhaled steroids; Z79.82 Long term (current) use of aspirin; Z87.891 Personal history of nicotine dependence; Z82.61 Family history of arthritis; Z82.49 Family history of ischemic heart disease and other diseases of the circulatory system; Z80.42 Family history of malignant neoplasm of prostate
CPT/HCPCS: 62323; J2250; J1040; J3010; Q9966

== ENCOUNTER → 2021-12-09 | Outpatient (CLI) | payer MEDICARE, BC ==
[2021-12-09 11:33] VITALS: BP 155/91; PULSE 58; RESP 18; TEMP 97.9
--- NOTE | 2021-12-09 15:03 | P.PAINPG ---
Objective - Vital Signs Vital signs: Vital Signs Temp 97.9 F 12/09/21 11:27 Pulse 58 L 12/09/21 11:27 Resp 18 12/09/21 11:27 BP 155/91 12/09/21 11:27 Pulse Ox 97 12/09/21 11:27 FiO2 Intake & Output 12/08/21 12/09/21 12/09/21 18:59 06:59 18:59 Weight 95.708 kg PQRS Measure Charge Sheet Mode of Arrival: Ambulatory Comment: A 71 yr old female with a history of severe and chronic low back pain secondar y to lumbar degenerative disc diseases and lumbar spondylosis with facet arthropathy without myelopathy presents today for medication refills and evaluation s/p MAU L5-S1. Pt states she experienced 80% pain relief x 2 wks s/p procedure. Pain level is currently at 0/10 in intensity, intermittent, dull/ achy in character w shooting towards the LLEs. Pain is provoked as high as 6/10 w bending. Pain is alleviated with PT years ago, medications (half the [place]), home exercise regimen, heat, laying on the L side, repositioning and rest. Interventional pain procedures completed include MAU L5-S1 Patient is currently on [place] 7.5/325mg Patient denies any side effects of the medication(s), denies excessive drowsiness or sleepiness, denies suicidal ideation and reports that the current pain medication is helping to control the pain and improve activities of daily living. Patient denies any motor or sensory deficits. Patient denies any fever or night sweats, denies any change in the bowel movements or urination. Physical Examination: -Constitutional: Cooperative. Not in acute distress . - Neurologic: Cranial nerve II to XII intact. No focal neurological deficits. - Psychatric: Alert & oriented x 3. Matching mood & appropriate affect. Judgment and insight intact. - Musculoskeletal: Cervical spine: Muscle bulk/ tone/ strength in the bilateral upper extremities normal Vertebral body tenderness to palpation over Spurling test positive Distraction test positive Facet loading test positive Thoracic spine Muscle bulk / tone/ strength in the bilateral paraspinal muscles normal Vertebral body tender to palpation over Facet loading test positive Lumbar spine: Motor bulk/ tone/ strength lower extremities , thigh and legs : 5/5 Deep tendon reflexes : Normal Knee Jerk. Normal Ankle Jerk . Vertebral body tenderness to palpation over Lumbar Facet Loading Test positive over BL L4-L5, L5-S1 Straight Leg Raise: positive at 30 degrees right side/ left side Gaenslen's Test positive Sacral spine : Severe tenderness over the Sacroiliac joint: right side / left side Range of motion: Flexion of the lumbar spine <60 degrees Range of motion: Extension of the lumbar spine <20 degrees Gaenslen's Test positive Ethan's Test positive Tim test: positive right side / left side Thigh Thrust Test Sacral Thrust Test Assessment and plan: Chronic low back pain secondary to lumbar degenerative disc disease , lumbar spondylosis with facet arthropathy without myelopathy Chronic and current use of high-risk medication (Opioids). The patient was counseled about risk of opioid use, psychological risk associated with opioids and was orally counseled to not overuse , divert or sell medications. Pt is to store medication in a safe location. The patient is counseled against driving while using narcotic medications and also not to use alcohol or any illicit recreational drugs. Patient verbalized understanding that the lack of compliance will result in failure to renew narcotic prescription(s) as well as possible discharge from the clinic Diagnoses, prognosis and treatment options including but not limited to physical therapy, surgical interventions, interventional therapies and medication management including narcotics and adjuvant medication were discussed. All patient questions answered MAPS reviewed and it was appropriate. Urine for UDS will be collected at next visit. Prescription refill for [place] 5/325mg #42 w 1 RF I have spent less than 30 minutes on patient care today. Dr Benson was avai lable by phone for the evaluation of this patient. The time was used to review the medical records including relevant urine studies and Prescription history (MAPs), review of the available imaging, evaluation and examination of the patient, coordination of care with the medical staff and if applicable referring physicians, as well as creation of the medical record - Pain Location Left Lower Back Non-Pharmacological Interventions: Heat, Home Exercise, Position/Reposition, Stretching Pharmacological Interventions: Epidural, Scheduled Medication PQRS Narrative: Blood Pressure 155/91 Pain Intensity [Left Lower 0 Back] Scale Used Numeric (1 - 10) Hx Alcohol Use (MH) No Home Medications: Ambulatory Orders Metoprolol Succinate [Toprol XL] 25 mg PO DAILY 11/27/14 Albuterol Sulfate [Ventolin HFA] 2 puff INHALATION Q6H PRN 03/20/20 Calcium Carbonate [Calcium] 1,200 mg PO DAILY 03/20/20 Famotidine 20 mg PO BID 03/20/20 Montelukast Sodium [Singulair] 10 mg PO HS 03/20/20 Budesonide [Pulmicort Flexhaler] 180 mcg INHALATION BID 06/18/21 Mag/Aluminum/Sod Bicarb/Alginc [Gaviscon 80-14.2 mg Tab Chew] 2 tab PO DIRECTED PRN 07/21/21 Melatonin [Melatonin ER] 10 mg PO HS 07/21/21 Vitamin B Complex 1 each PO DAILY 07/21/21 polyethylene glycoL 3350 [Miralax] 17 gm PO HS 07/21/21 Cholecalciferol [Vitamin D3 (25 Mcg = 1000 Iu)] 50 mcg PO DAILY 09/28/21 Omeprazole [PriLOSEC] 20 mg PO TH 09/28/21 HYDROcodone/APAP 7.5-325MG [[place] 7.5-325] 1 tab PO Q12HR PRN 30 Days #42 tab 10/19/21 Controlled Substance Measures - Controlled Substance Measures Is patient prescribed a controlled substance at discharge?: Yes When asked, does pt state using other controlled substances?: No If prescribed controlled substance>3 days was MAPS reviewed?: Yes If Rx opioid, was Start Talking consent form obtained?: Yes Was information provided regarding opioid addiction?: Yes
== END ==
LOC: PNWHC3 11:05
PROVIDERS: ATTEND Specialist
DX: M51.36 Other intervertebral disc degeneration, lumbar region (principal); M47.816 Spondylosis without myelopathy or radiculopathy, lumbar region; G89.29 Other chronic pain; Z79.891 Long term (current) use of opiate analgesic; Z87.891 Personal history of nicotine dependence
CPT/HCPCS: 99211

== ENCOUNTER → 2022-02-03 | Outpatient (CLI) | payer MEDICARE, BC ==
[2022-02-03 11:40] VITALS: BP 156/75; PULSE 66; RESP 18
--- NOTE | 2022-02-03 14:27 | P.PAINPG ---
PQRS Measure Charge Sheet Comment: A 71 yr old female with a history of severe and chronic low back pain secondary to lumbar degenerative disc diseases and lumbar spondylosis with facet arthropathy without myelopathy presents today for medication refills and evaluation s/p MAU L5-S1 in Nov 2021. Pt states she experienced 80% pain relief x 6 wks s/p procedure. Pain level is currently at 3/10 in intensity, constant, localized in the lower lumbar spine, achy in character w shooting towards the BL feet. Pain is accompanied w occasional BL feet numbness/ tingling. Pain is provoked as high as 6/10 by bending/ lifting. Pain is alleviated with medications, injections in the past, topicals which provide no relief, heat, PT in 2019, chiropractic treatments in 2017, home exercise regimen as tolerated, massage therapy in 2019, repositioning and rest. Interventional pain procedures completed include MAU L5-S1 Patient is currently on Jackhorn 5/325mg BID prn Patient denies any side effects of the medication(s), denies excessive drowsiness or sleepiness, denies suicidal ideation and reports that the current pain medication is helping to control the pain and improve activities of daily living. Patient denies any motor or sensory deficits. Patient denies any fever or night sweats, denies any change in the bowel movements or urination. Physical Examination: -Constitutional: Cooperative. Not in acute distress . - Neurologic: Cranial nerve II to XII intact. No focal neurological deficits. - Psychatric: Alert & oriented x 3. Matching mood & appropriate affect. Judgment and insight intact. - Musculoskeletal: Cervical spine: Muscle bulk/ tone/ strength in the bilateral upper extremities normal Vertebral body tenderness to palpation over Spurling test positive Distraction test positive Facet loading test positive Thoracic spine Muscle bulk / tone/ strength in the bilateral paraspinal muscles normal Vertebral body tender to palpation over Facet loading test positive Lumbar spine: Motor bulk/ tone/ strength lower extremities , thigh and legs : 5/5 Deep tendon reflexes : Normal Knee Jerk. Normal Ankle Jerk . Vertebral body tenderness to palpation over L5 Lumbar Facet Loading Test positive Straight Leg Raise: positive at 30 degrees right side/ left side Gaenslen's Test positive Sacral spine : Severe tenderness over the Sacroiliac joint: right side / left side Range of motion: Flexion of the lumbar spine <60 degrees Range of motion: Extension of the lumbar spine <20 degrees Gaenslen's Test positive Ethan's Test positive Tim test: positive right side / left side Thigh Thrust Test Sacral Thrust Test Assessment and plan: Chronic low back pain secondary to lumbar degenerative disc disease , lumbar spondylosis with facet arthropathy without myelopathy Recommendation of MAU L5-S1. May need a series of injections, up to 4 per 12 mo period, for optimal pain relief. Risks, benefits of procedure discussed and pt verbalized understanding. Admits to anticoagulant use or medical history of diabetes. Protocol for discontinuation/ continuation of medications ang procedure discussed. Chronic and current use of high-risk medication (Opioids). The patient was counseled about risk of opioid use, psychological risk associated with opioids and was orally counseled to not overuse , divert or sell medications. Pt is to store medication in a safe location. The patient is counseled against driving while using narcotic medications and also not to use alcohol or any illicit recreational drugs. Patient verbalized understanding that the lack of compliance will result in failure to renew narcotic prescription(s) as well as possible discharge from the clinic Diagnoses, prognosis and treatment options including but not limited to physical therapy, surgical interventions, interventional therapies and medication management including narcotics and adjuvant medication were discussed. All patient questions answered MAPS reviewed and it was appropriate. Prescription refill for Jackhorn 5/325mg #60 w 1 RF I have spent less than 30 minutes on patient care today. Dr Benson was available by phone for the evaluation of this patient. The time was used to review the medical records including relevant urine studies and Prescription history (MAPs), review of the available imaging, evaluation and examination of the patient, coordination of care with the medical staff and if applicable referring physicians, as well as creation of the medical record PQRS Narrative: Hx Alcohol Use (MH) No Home Medications: Ambulatory Orders Metoprolol Succinate [Toprol XL] 25 mg PO DAILY 11/27/14 Albuterol Sulfate [Ventolin HFA] 2 puff INHALATION Q6H PRN 03/20/20 Calcium Carbonate [Calcium] 1,200 mg PO DAILY 03/20/20 Famotidine 20 mg PO BID 03/20/20 Montelukast Sodium [Singulair] 10 mg PO HS 03/20/20 Budesonide [Pulmicort Flexhaler] 180 mcg INHALATION BID 06/18/21 Mag/Aluminum/Sod Bicarb/Alginc [Gaviscon 80-14.2 mg Tab Chew] 2 tab PO DIRECTED PRN 07/21/21 Melatonin [Melatonin ER] 10 mg PO HS 07/21/21 Vitamin B Complex 1 each PO DAILY 07/21/21 polyethylene glycoL 3350 [Miralax] 17 gm PO HS 07/21/21 Cholecalciferol [Vitamin D3 (25 Mcg = 1000 Iu)] 50 mcg PO DAILY 09/28/21 Omeprazole [PriLOSEC] 20 mg PO TH 09/28/21 HYDROcodone/APAP 5-325MG [Jackhorn 5-325] 1 tab PO Q12HR PRN 30 Days #42 tab 12/09/21 HYDROcodone/APAP 5-325MG [Jackhorn 5-325] 1 tab PO Q12HR PRN 30 Days #42 tab 12/09/21 Controlled Substance Measures - Controlled Substance Measures Is patient prescribed a controlled substance at discharge?: Yes When asked, does pt state using other controlled substances?: No If prescribed controlled substance>3 days was MAPS reviewed?: Yes If Rx opioid, was Start Talking consent form obtained?: Yes Was information provided regarding opioid addiction?: Yes
== END ==
LOC: PNWHC3 11:24
PROVIDERS: ATTEND Specialist
DX: M47.816 Spondylosis without myelopathy or radiculopathy, lumbar region (principal); M51.36 Other intervertebral disc degeneration, lumbar region; G89.29 Other chronic pain; Z79.01 Long term (current) use of anticoagulants; E11.9 Type 2 diabetes mellitus without complications; Z79.891 Long term (current) use of opiate analgesic; Z87.891 Personal history of nicotine dependence; Z79.84 Long term (current) use of oral hypoglycemic drugs
CPT/HCPCS: 99211

== ENCOUNTER 2022-03-09 06:46 | Day surgery (SDC) | payer MEDICARE, BC ==
[2022-03-09 07:22] VITALS: RESP 16; TEMP 97.4
[2022-03-09] MEDS ORDERED: LACTATED RINGERS 1,000 ML IV ONE (07:30)
[2022-03-09] MEDS ORDERED: fentaNYL (PF) 50 MCG/ML 2 ML AMP ONE (07:46)
[2022-03-09] MEDS ORDERED: methylPREDNISolone ACETATE 80 MG/ML 1 ML VIAL ONE (07:46)
[2022-03-09] MEDS ORDERED: IOPAMIDOL M200 10 ML VIAL ONE (07:46)
[2022-03-09] MEDS ORDERED: MIDAZOLAM 2 MG/2 ML VIAL ONE (07:46)
--- NOTE | 2022-03-09 07:56 | P.PCN ---
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 PROCEDURE 1. Lumbar epidural steroid injection under fluoroscopic guidance at the L5-S1 level. (Fluoroscopy imaging was available in radiology department) 2. Lumbar epidurogram. ANESTHESIA: moderate sedation with intravenous Versed 2 mg ,and fentanyle 100 Mcg Sedation start time : 0748 Sedation end time : 0754 EBL: Minimal PROCEDURE INDICATION: The patient with low back pain and radiculitis symptoms unresponsive to conservative treatment. Fluoroscopy was used to optimize visualization of the needle placement and to maximize safety. PROCEDURE DESCRIPTION / TECHNIQUE: The patient was seen and identified in the preoperative area. Risks, benefits, complications including but not limited to infections ,bleeding ,allergic reaction to the medications ,nerve damage and not complete pain releife , and alternatives were discussed with the patient. The patient agreed to proceed with the procedure and signed the consent. IV was started, and vital signs were stable. Patient was taken to the OR and time out was completed. The patient was placed in the prone position on procedure table and a pillow was placed under the abdomen to reduce lumbar lordosis. The lumbosacral area was prepped and draped in the usual sterile fashion.ere closely monitored during the procedure. Conscious sedation was used during the procedure to decrease patients anxiety. Vital signs was monitered during the entire procedure. Using anterior-posterior fluoroscopy, the L5-S1 interlaminar space was identified and the skin over this site was marked and then infiltrated with 1% lidocaine subcutaneously. Subsequently, a 20-gauge Tuohy epidural needle was inserted and advanced toward the epidural space using the ``Loss of resistance technique and guided by AP and lateral fluoroscopy. The correct needle position in the epidural space was verified with the injection of 2 mL of the water soluble contrast dye Isovue 200 contrast and observing an excellent epidurogram with the epidural spread of the dye, after negative aspiration for blood and CSF and in the absence of paresthesias. Again after negative aspiration, a 6 ml mixture containing 60 mg of Depo-medrol , and 2 ml of preservative free Normal Saline, and 2 ml of preservative free lidocaine 1% solution was injected and a washout of epidurogram was seen. Needle was withdrawn intact, skin was cleansed, and bandages were applied. COMPLICATIONS: None DISPOSITION / PLANS: The patient was placed in a supine position and transferred to the recovery area in a stable condition for observation. There was no evidence of lower extremity motor or sensory deficit after the procedure. Patient was discharged from the recovery room after meeting discharge criteria. Home discharge instructions were given to the patient by the staff. The patient was reexamined prior to discharge. The patient will schedule a follow up in the clinic in 2-4 weeks.
[2022-03-09] MEDS ORDERED: IV FLUID CONTINUATION 1,000 ML IV ONE (08:03)
[2022-03-09 08:16] VITALS: BP 116/67; PULSE 59
--- NOTE | 2022-03-09 08:16 | FL ---
Fluoroscopy INDICATION: Pain FINDINGS: Fluoroscopy time: 1 seconds. Images obtained: One. IMPRESSIONS: 1. Documentation of fluoroscopy.
== END 2022-03-09 08:57 | disposition home or self-care (01) ==
LOC: ORPAIN 06:46
PROVIDERS: ATTEND Specialist
DX: M51.16 Intervertebral disc disorders with radiculopathy, lumbar region (principal); M96.1 Postlaminectomy syndrome, not elsewhere classified
CPT/HCPCS: 62323; J2250; J1040; J3010; Q9966

== ENCOUNTER → 2022-03-29 | Outpatient (CLI) | payer MEDICARE, BC ==
[2022-03-29 11:26] VITALS: BP 163/96; PULSE 64; RESP 18; TEMP 97.9
--- NOTE | 2022-03-29 15:01 | P.PAINPG ---
PQRS Measure Charge Sheet Comment: A 72 yr old female with a history of severe and chronic low back pain secondary to lumbar DDD and spondylosis with facet arthropathy without myelopathy presents today for medication refills and evaluation s/p L5-S1. Pt states she received 70% pain relief x 3 wks s/p procedure. Pain level is currently at 5 /10 in intensity, constant, localized in L lower lumbar spine, sharp in character w shooting towards the L hip. Pain is provoked by bending, twisting, lifting. Pain is alleviated with PT x 3 mo in October 2021, heat, medications ([place]), topicals, repositioning and rest. Interventional pain procedures completed include LESIs Patient is currently on [place] Patient denies any side effects of the medication(s), denies excessive drowsiness or sleepiness, denies suicidal ideation and reports that the current pain medication is helping to control the pain and improve activities of daily living. Patient denies any motor or sensory deficits. Patient denies any fever or night sweats, denies any change in the bowel movements or urination. Physical Examination: -Constitutional: Cooperative. Not in acute distress . - Neurologic: Cranial nerve II to XII intact. No focal neurological deficits. - Psychatric: Alert & oriented x 3. Matching mood & appropriate affect. Judgment and insight intact. - Musculoskeletal: Cervical spine: Muscle bulk/ tone/ strength in the bilateral upper extremities normal Vertebral body tenderness to palpation over Spurling test positive Distraction test positive Facet loading test positive Thoracic spine Muscle bulk / tone/ strength in the bilateral paraspinal muscles normal Vertebral body tender to palpation over Facet loading test positive Lumbar spine: Motor bulk/ tone/ strength lower extremities , thigh and legs : 5/5 Deep tendon reflexes : Normal Knee Jerk. Normal Ankle Jerk . Vertebral body tenderness to palpation over L3, L4, L5 Lumbar Facet Loading Test positive Straight Leg Raise: positive at 30 degrees right side/ left side Gaenslen's Test positive Sacral spine : Severe tenderness over the Sacroiliac joint: right side / left side Range of motion: Flexion of the lumbar spine <60 degrees Range of motion: Extension of the lumbar spine <20 degrees Gaenslen's Test positive Tim test: positive right side / left side Thigh Thrust Test Sacral Thrust Test Assessment and plan: Chronic low back pain secondary to lumbar degenerative disc disease, spondylosis with facet arthropathy without myelopathy Chronic and current use of high-risk medication (Opioids). The patient was counseled about risk of opioid use, psychological risk associated with opioids and was orally counseled to not overuse , divert or sell medications. Pt is to store medication in a safe location. The patient is counseled against driving while using narcotic medications and also not to use alcohol or any illicit recreational drugs. Patient verbalized understanding that the lack of compliance will result in failure to renew narcotic prescription(s) as well as possible discharge from the clinic Diagnoses, prognosis and treatment options including but not limited to physical therapy, surgical interventions, interventional therapies and medication management including narcotics and adjuvant medication were discussed. All patient questions answered MAPS reviewed and it was appropriate. Urine for UDS collected today 03/29/22 Prescription refill for [place] 5/325mg #60 w 1 RF I have spent less than 30 minutes on patient care today. Dr Benson was available by phone for the evaluation of this patient. The time was used to review the medical records including relevant urine studies and Prescription history (MAPs), review of the available imaging, evaluation and examination of the patient, coordination of care with the medical staff and if applicable referring physicians, as well as creation of the medical record - Pain Location Left Lower Back Non-Pharmacological Interventions: Heat, Inactivity, Physical Therapy Pharmacological Interventions: Epidural, PRN Medication, Topical Medication PQRS Narrative: Hx Alcohol Use (MH) No Home Medications: Ambulatory Orders Metoprolol Succinate [Toprol XL] 25 mg PO DAILY 11/27/14 Albuterol Sulfate [Ventolin HFA] 2 puff INHALATION Q6H PRN 03/20/20 Calcium Carbonate [Calcium] 1,200 mg PO DAILY 03/20/20 Famotidine 20 mg PO BID 03/20/20 Montelukast Sodium [Singulair] 10 mg PO HS 03/20/20 Budesonide [Pulmicort Flexhaler] 180 mcg INHALATION BID 06/18/21 Mag/Aluminum/Sod Bicarb/Alginc [Gaviscon 80-14.2 mg Tab Chew] 2 tab PO DIRECTED PRN 07/21/21 Melatonin [Melatonin ER] 10 mg PO HS 07/21/21 Vitamin B Complex 1 each PO DAILY 07/21/21 polyethylene glycoL 3350 [Miralax] 17 gm PO HS 07/21/21 Cholecalciferol [Vitamin D3 (25 Mcg = 1000 Iu)] 50 mcg PO DAILY 09/28/21 Omeprazole [PriLOSEC] 20 mg PO TH 09/28/21 HYDROcodone/APAP 5-325MG [[place] 5-325] 1 tab PO Q12HR PRN 30 Days #60 tab 03/29/22 HYDROcodone/APAP 5-325MG [[place] 5-325] 1 tab PO Q12HR PRN 30 Days #60 tab 03/29/22 Controlled Substance Measures - Controlled Substance Measures Is patient prescribed a controlled substance at discharge?: Yes When asked, does pt state using other controlled substances?: No If prescribed controlled substance>3 days was MAPS reviewed?: Yes If Rx opioid, was Start Talking consent form obtained?: Yes Was information provided regarding opioid addiction?: Yes
== END ==
LOC: PNWHC3 10:55
PROVIDERS: ATTEND Specialist
DX: M47.816 Spondylosis without myelopathy or radiculopathy, lumbar region (principal); M51.36 Other intervertebral disc degeneration, lumbar region; G89.29 Other chronic pain; Z87.891 Personal history of nicotine dependence
CPT/HCPCS: 80307; G0482; G0463; 99212

== ENCOUNTER → 2022-07-19 | Outpatient (CLI) | payer MEDICARE ==
[2022-07-19 12:48] VITALS: BP 168/91; PULSE 66; RESP 18
--- NOTE | 2022-07-19 16:28 | P.PAINPG ---
PQRS Measure Charge Sheet Comment: A 72 yr old female with a history of severe and chronic LBP secondary to lumbar DDD and spondylosis with facet arthropathy without myelopathy presents today for medication refills. Pain level is provoked at 6/10 in intensity, constant, localized in the lumbar spine, sharp in character w shooting towards . Pain is provoked by climbing stairs. Pain is alleviated with PT years ago, chiropractic treatments years ago, heat, medications (Outing, ASA), repositioning and rest. Interventional pain procedures completed include LESIs Patient is currently on Outing, ASA Patient denies any side effects of the medication(s), denies excessive drowsiness or sleepiness, denies suicidal ideation and reports that the current pain medication is helping to control the pain and improve activities of daily living. Patient denies any motor or sensory deficits. Patient denies any fever or night sweats, denies any change in the bowel movements or urination. Physical Examination: -Constitutional: Cooperative. Not in acute distress . - Neurologic: Cranial nerve II to XII intact. No focal neurological deficits. - Psychatric: Alert & oriented x 3. Matching mood & appropriate affect. Judgment and insight intact. - Musculoskeletal: Cervical spine: Muscle bulk/ tone/ strength in the bilateral upper extremities normal Vertebral body tenderness to palpation over Spurling test positive Distraction test positive Facet loading test positive TTP Thoracic spine Muscle bulk / tone/ strength in the bilateral paraspinal muscles normal Vertebral body tender to palpation over Facet loading test positive TTP Lumbar spine: Motor bulk/ tone/ strength lower extremities , thigh and legs : 5/5 Deep tendon reflexes : Normal Knee Jerk. Normal Ankle Jerk . Vertebral body tenderness to palpation over L5 Lumbar Facet Loading Test positive Straight Leg Raise: positive at 30 degrees right side/ left side Gaenslen's Test positive Sacral spine : Severe tenderness over the Sacroiliac joint: right side / left side Range of motion: Flexion of the lumbar spine <60 degrees Range of motion: Extension of the lumbar spine <20 degrees Gaenslen's Test positive right side / left side Tim test: positive right side / left side Thigh Thrust Test positive right side / left side Sacral Thrust Test positive right side / left side Assessment and plan: Chronic LBP secondary to lumbar DDD, spondylosis with facet arthropathy without myelopathy Recommendation of PT x 6 wks re: M51.36. All questions answered. Chronic and current use of high-risk medication (Opioids). The patient was counseled about risk of opioid use, psychological risk associated with opioids and was orally counseled to not overuse , divert or sell medications. Pt is to store medication in a safe location. The patient is counseled against driving while using narcotic medications and also not to use alcohol or any illicit recreational drugs. Patient verbalized understanding that the lack of compliance will result in failure to renew narcotic prescription(s) as well as possible discharge from the clinic Diagnoses, prognosis and treatment options including but not limited to physical therapy, surgical interventions, interventional therapies and medication management including narcotics and adjuvant medication were discussed. All patient questions answered MAPS reviewed and it was appropriate. UDS from 03/29/22 reviewed and consistent. Prescription refill for Outing 50/325mg #60 w 1 RF. I have spent less than 30 minutes on patient care today. Dr Benson was available by phone for the evaluation of this patient. The time was used to review the medical records including relevant urine studies and Prescription history (MAPs), review of the available imaging, evaluation and examination of the patient, coordination of care with the medical staff and if applicable referring physicians, as well as creation of the medical record PQRS Narrative: Hx Alcohol Use (MH) No Home Medications: Ambulatory Orders Metoprolol Succinate [Toprol XL] 25 mg PO DAILY 11/27/14 Albuterol Sulfate [Ventolin HFA] 2 puff INHALATION Q6H PRN 03/20/20 Calcium Carbonate [Calcium] 1,200 mg PO DAILY 03/20/20 Famotidine 20 mg PO BID 03/20/20 Montelukast Sodium [Singulair] 10 mg PO HS 03/20/20 Budesonide [Pulmicort Flexhaler] 180 mcg INHALATION BID 06/18/21 Mag/Aluminum/Sod Bicarb/Alginc [Gaviscon 80-14.2 mg Tab Chew] 2 tab PO DIRECTED PRN 07/21/21 Melatonin [Melatonin ER] 10 mg PO HS 07/21/21 Vitamin B Complex 1 each PO DAILY 07/21/21 polyethylene glycoL 3350 [Miralax] 17 gm PO HS 07/21/21 Cholecalciferol [Vitamin D3 (25 Mcg = 1000 Iu)] 50 mcg PO DAILY 09/28/21 Omeprazole [PriLOSEC] 20 mg PO TH 09/28/21 HYDROcodone/APAP 5-325MG [Outing 5-325] 1 tab PO Q12HR PRN 30 Days #60 tab 07/19/22 HYDROcodone/APAP 5-325MG [Outing 5-325] 1 tab PO Q12HR PRN 30 Days #60 tab 07/19/22 Controlled Substance Measures - Controlled Substance Measures Is patient prescribed a controlled substance at discharge?: Yes When asked, does pt state using other controlled substances?: No If prescribed controlled substance>3 days was MAPS reviewed?: Yes
== END ==
LOC: PNWHC3 10:58
PROVIDERS: ATTEND Specialist
DX: M51.36 Other intervertebral disc degeneration, lumbar region (principal); G89.29 Other chronic pain; M47.816 Spondylosis without myelopathy or radiculopathy, lumbar region; Z79.891 Long term (current) use of opiate analgesic; Z79.899 Other long term (current) drug therapy; Z87.891 Personal history of nicotine dependence; Z79.82 Long term (current) use of aspirin
CPT/HCPCS: 99211

== ENCOUNTER → 2022-09-13 | Outpatient (CLI) | payer MEDICARE ==
[2022-09-13 14:46] VITALS: BP 172/87; PULSE 62; RESP 18; TEMP 98.4
--- NOTE | 2022-09-15 11:51 | P.PAINPG ---
PQRS Measure Charge Sheet Comment: A 72 yr old female with a history of severe and chronic LBP x yrs secondary to lumbar DDD and spondylosis with facet arthropathy without myelopathy presents today for medication refills. Pain level is provoked at 7/10 in intensity, constant, localized in the lumbar spine, sharp in character without shooting pain. Pain is provoked by climbing stairs. Pain is alleviated with PT x 6 wks which she finished in August 2022, chiropractic treatments years ago, heat, medications ([place], ASA), reclining, repositioning and rest. Interventional pain procedures completed include LESIs Patient is currently on [place], ASA Patient denies any side effects of the medication(s), denies excessive drowsiness or sleepiness, denies suicidal ideation and reports that the current pain medication is helping to control the pain and improve activities of daily living. Patient denies any motor or sensory deficits. Patient denies any fever or night sweats, denies any change in the bowel movements or urination. Physical Examination: -Constitutional: Cooperative. Not in acute distress . - Neurologic: Cranial nerve II to XII intact. No focal neurological deficits. - Psychatric: Alert & oriented x 3. Matching mood & appropriate affect. Judgment and insight intact. - Musculoskeletal: Cervical spine: Muscle bulk/ tone/ strength in the bilateral upper extremities normal Vertebral body tenderness to palpation over Spurling test positive Distraction test positive Facet loading test positive TTP Thoracic spine Muscle bulk / tone/ strength in the bilateral paraspinal muscles normal Vertebral body tender to palpation over Facet loading test positive TTP Lumbar spine: Motor bulk/ tone/ strength lower extremities , thigh and legs : 5/5 Deep tendon reflexes : Normal Knee Jerk. Normal Ankle Jerk . Vertebral body tenderness to palpation over L5 Joseph Test positive Lumbar Facet Loading Test positive Straight Leg Raise: positive at 30 degrees right side/ left side Gaenslen's Test positive Sacral spine : Severe tenderness over the Sacroiliac joint: right side / left side Range of motion: Flexion of the lumbar spine <60 degrees Range of motion: Extension of the lumbar spine <20 degrees Gaenslen's Test positive right side / left side Tim test: positive right side / left side Thigh Thrust Test positive right side / left side Sacral Thrust Test positive right side / left side Assessment and plan: Chronic LBP secondary to lumbar DDD, spondylosis with facet arthropathy without myelopathy Recommendation of MAU L5-S1. May need a series of injections for optimal pain relief. Risks, benefits of procedure discussed and patient verbalized understanding. Protocol for discontinuation/continuation of medications surro unding procedure discussed. Chronic and current use of high-risk medication (Opioids). The patient was counseled about risk of opioid use, psychological risk associated with opioids and was orally counseled to not overuse , divert or sell medications. Pt is to store medication in a safe location. The patient is counseled against driving while using narcotic medications and also not to use alcohol or any illicit recreational drugs. Patient verbalized understanding that the lack of compliance will result in failure to renew narcotic prescription(s) as well as possible discharge from the clinic Diagnoses, prognosis and treatment options including but not limited to physical therapy, surgical interventions, interventional therapies and medication management including narcotics and adjuvant medication were discussed. All patient questions answered MAPS reviewed and it was appropriate. UDS collected today 09/13/22. Prescription refill for [place] 50/325mg #60 w 1 RF. I have spent less than 30 minutes on patient care today. Dr Benson was available by phone for the evaluation of this patient. The time was used to review the medical records including relevant urine studies and Prescription history (MAPs), review of the available imaging, evaluation and examination of the patient, coordination of care with the medical staff and if applicable referring physicians, as well as creation of the medical record PQRS Narrative: Hx Alcohol Use (MH) No Home Medications: Ambulatory Orders Metoprolol Succinate [Toprol XL] 25 mg PO DAILY 11/27/14 Albuterol Sulfate [Ventolin HFA] 2 puff INHALATION Q6H PRN 03/20/20 Calcium Carbonate [Calcium] 1,200 mg PO DAILY 03/20/20 Famotidine 20 mg PO BID 03/20/20 Montelukast Sodium [Singulair] 10 mg PO HS 03/20/20 Budesonide [Pulmicort Flexhaler] 180 mcg INHALATION BID 06/18/21 Mag/Aluminum/Sod Bicarb/Alginc [Gaviscon 80-14.2 mg Tab Chew] 2 tab PO DIRECTED PRN 07/21/21 Melatonin [Melatonin ER] 10 mg PO HS 07/21/21 Vitamin B Complex 1 each PO DAILY 07/21/21 polyethylene glycoL 3350 [Miralax] 17 gm PO HS 07/21/21 Cholecalciferol [Vitamin D3 (25 Mcg = 1000 Iu)] 50 mcg PO DAILY 09/28/21 Omeprazole [PriLOSEC] 20 mg PO TH 09/28/21 HYDROcodone/APAP 5-325MG [[place] 5-325] 1 tab PO Q12HR PRN 30 Days #60 tab 09/13/22 HYDROcodone/APAP 5-325MG [[place] 5-325] 1 tab PO Q12HR PRN 30 Days #60 tab 09/13/22 Controlled Substance Measures - Controlled Substance Measures Is patient prescribed a controlled substance at discharge?: Yes When asked, does pt state using other controlled substances?: No If prescribed controlled substance>3 days was MAPS reviewed?: Yes
== END ==
LOC: PNWHC3 12:24
PROVIDERS: ATTEND Specialist
DX: M51.36 Other intervertebral disc degeneration, lumbar region (principal); M47.816 Spondylosis without myelopathy or radiculopathy, lumbar region; G89.29 Other chronic pain; Z79.891 Long term (current) use of opiate analgesic; Z87.891 Personal history of nicotine dependence
CPT/HCPCS: 99212

== ENCOUNTER 2022-10-14 11:22 | Day surgery (SDC) | payer MEDICARE ==
[~2022-10-14 11:22] MED LIST changes: -LIDOCAINE 1% (10MG/ML) FOR IV START INTRADERMA PRN
[2022-10-14 12:02] VITALS: TEMP 98.8
[2022-10-14] MEDS ORDERED: methylPREDNISolone ACETATE 80 MG/ML 1 ML VIAL ONE (13:14)
[2022-10-14] MEDS ORDERED: IOPAMIDOL M200 10 ML VIAL ONE (13:14)
--- NOTE | 2022-10-14 13:23 | P.PCN ---
Date of Procedure: 10/14/22 Description of Procedure: Procedure: 1. L5-S1 Epidural steroid injection under fluoroscopic guidance # 04/13 , 2. Lumbar epidurogram PREOPERATIVE DIAGNOSIS: Lumbar degenerative disc disease, and Lumbar radiculopathy. POSTOPERATIVE DIAGNOSIS: Lumbar degenerative disc disease, and Lumbar radiculopathy. SURGEON: Angelica Steinberg ANESTHESIA: Local with 1% lidocaine, and IV sedation: None EBL: None. Specimen removed: None Fluoroscopic image: saved to electronic medical records PROCEDURE INDICATION: The patient had history of Lumbar degenerative disc disease and Lumbar radiculopathy. Failed to conservative therapy. Presented for epidural steroid injection. PROCEDURE DESCRIPTION: The patient was seen and identified in the preoperative area. Risks, benefits, complications, and alternatives were discussed with the patient. The patient agreed to proceed with the procedure and signed the consent. IV was started, and vital signs were stable. Patient was taken to the procedure area, and time out was completed. The patient was placed in the prone position on procedure table and a pillow was placed under the abdomen to reduce lumbar lordosis. The lumbosacral area was prepped and draped in the usual sterile fashion. Critical pause was taken. Vital signs were closely monitored during the procedure. Using anterior-posterior fluoroscopy, the L5-S1 interlaminar space was identified, and skin and deeper tissues were localized with 1% lidocaine. Using anterior-posterior fluoroscopy, lateral fluoroscopy, and [id number] technique, a 20 gauge 3.5 Tuohy epidural needle entered the epidural space. After negative aspiration of CSF and blood with no paresthesias, 1 ml of [id number] contrast dye was injected and an excellent epidurogram was seen. Again after negative aspiration of CSF and blood with no paresthesias, 6 mL of block solution was injected into the epidural space. Block solution contained 80 mg of Depo-Medrol, and 5 mL of preservative-free normal saline. Needle was withdrawn intact, skin was cleansed, and bandages were applied. COMPLICATIONS: None. DISPOSITION / PLANS: The patient was placed in a supine position and transferred to the recovery area in a stable condition for observation. Patient was discharged from the recovery room after meeting discharge criteria. Home discharge instructions given to the patient by the staff. The patient was reexamined prior to discharge. The patient will schedule a follow up in the clinic in 4 weeks.
[2022-10-14 13:26] VITALS: RESP 16
--- NOTE | 2022-10-14 13:30 | FL ---
Intraoperative/procedural fluoroscopic services were provided for lumbar epidural steroid injection. Total fluoroscopy time is 3.2 seconds with a total of 2 submitted images to PACS. Total DAP 0.32518 m Gym2. Please see the operative note for further details.
[2022-10-14 13:41] VITALS: BP 166/79; PULSE 59
== END 2022-10-14 13:55 | disposition home or self-care (01) ==
LOC: ORPAIN 11:22
DX: M51.16 Intervertebral disc disorders with radiculopathy, lumbar region (principal); J45.909 Unspecified asthma, uncomplicated; I10 Essential (primary) hypertension; M19.90 Unspecified osteoarthritis, unspecified site; K21.9 Gastro-esophageal reflux disease without esophagitis; Z79.51 Long term (current) use of inhaled steroids; Z79.899 Other long term (current) drug therapy; Z96.653 Presence of artificial knee joint, bilateral; Z98.1 Arthrodesis status
CPT/HCPCS: 62323; J1040; Q9966

== ENCOUNTER → 2022-11-08 | Outpatient (CLI) | payer MEDICARE ==
[2022-11-08 12:55] VITALS: BP 175/96; PULSE 60; RESP 15; TEMP 97.8
--- NOTE | 2022-11-08 14:42 | P.PAINPG ---
PQRS Measure Charge Sheet Comment: A 72 yr old female with a history of severe and chronic LBP x yrs secondary to lumbar DDD and spondylosis with facet arthropathy without myelopathy presents today for medication refills and evaluation s/p MAU L5-S1. Pt states she experienced 100% pain relief x 3 wks s/p procedure. Pain level is provoked at 5/10 in intensity, constant, localized in the lumbar spine, sharp in character without shooting pain. Pain is provoked by climbing stairs. Pain is alleviated with PT x 6 wks which she finished in August 2022, chiropractic treatments years ago, heat, medications ([place] 5/325mg #60, ASA), reclining, repositioning and rest. Interventional pain procedures completed include LESIs Patient is currently on [place] 5/325mg #60, ASA Patient denies any side effects of the medication(s), denies excessive drowsiness or sleepiness, denies suicidal ideation and reports that the current pain medication is helping to control the pain and improve activities of daily living. Patient denies any motor or sensory deficits. Patient denies any fever or night sweats, denies any change in the bowel movements or urination. Physical Examination: -Constitutional: Cooperative. Not in acute distress . - Neurologic: Cranial nerve II to XII intact. No focal neurological deficits. - Psychatric: Alert & oriented x 3. Matching mood & appropriate affect. Judgment and insight intact. - Musculoskeletal: Cervical spine: Muscle bulk/ tone/ strength in the bilateral upper extremities normal Vertebral body tenderness to palpation over Spurling test positive Distraction test positive Facet loading test positive TTP Thoracic spine Muscle bulk / tone/ strength in the bilateral paraspinal muscles normal Vertebral body tender to palpation over Facet loading test positive TTP Lumbar spine: Motor bulk/ tone/ strength lower extremities , thigh and legs : 5/5 Deep tendon reflexes : Normal Knee Jerk. Normal Ankle Jerk . Vertebral body tenderness to palpation over L5 Joseph Test positive Lumbar Facet Loading Test positive Straight Leg Raise: positive at 30 degrees right side/ left side Gaenslen's Test positive Sacral spine : Severe tenderness over the Sacroiliac joint: right side / left side Range of motion: Flexion of the lumbar spine <60 degrees Range of motion: Extension of the lumbar spine <20 degrees Gaenslen's Test positive right side / left side Tim test: positive right side / left side Thigh Thrust Test positive right side / left side Sacral Thrust Test positive right side / left side Assessment and plan: Chronic LBP secondary to lumbar DDD, spondylosis with facet arthropathy without myelopathy Chronic and current use of high-risk medication (Opioids). The patient was counseled about risk of opioid use, psychological risk associated with opioids and was orally counseled to not overuse , divert or sell medications. Pt is to store medication in a safe location. The patient is counseled against driving while using narcotic medications and also not to use alcohol or any illicit recreational drugs. Patient verbalized understanding that the lack of compliance will result in failure to renew narcotic prescription(s) as well as possible discharge from the clinic Diagnoses, prognosis and treatment options including but not limited to physical therapy, surgical interventions, interventional therapies and medication management including narcotics and adjuvant medication were discussed. All patient questions answered MAPS reviewed and it was appropriate. UDS from 09/13/22 reviewed and consistent. Prescription refill for [place] 50/325mg #60 w 1 RF. I have spent less than 30 minutes on patient care today. Dr Benson was available by phone for the evaluation of this patient. The time was used to review the medical records including relevant urine studies and Prescription history (MAPs), review of the available imaging, evaluation and examination of the patient, coordination of care with the medical staff and if applicable referring physicians, as well as creation of the medical record PQRS Narrative: Hx Alcohol Use (MH) No Home Medications: Ambulatory Orders Metoprolol Succinate [Toprol XL] 25 mg PO DAILY 11/27/14 Albuterol Sulfate [Ventolin HFA] 2 puff INHALATION Q6H PRN 03/20/20 Calcium Carbonate [Calcium] 1,200 mg PO DAILY 03/20/20 Famotidine 20 mg PO BID 03/20/20 Montelukast Sodium [Singulair] 10 mg PO HS 03/20/20 Mag/Aluminum/Sod Bicarb/Alginc [Gaviscon 80-14.2 mg Tab Chew] 2 tab PO DIRECTED PRN 07/21/21 Melatonin [Melatonin ER] 10 mg PO HS 07/21/21 Vitamin B Complex 1 each PO DAILY 07/21/21 polyethylene glycoL 3350 [Miralax] 17 gm PO HS PRN 07/21/21 Cholecalciferol [Vitamin D3 (25 Mcg = 1000 Iu)] 50 mcg PO DAILY 09/28/21 Omeprazole [PriLOSEC] 40 mg PO TH 09/28/21 Budesonide/Formoterol Fumarate [Symbicort 80-4.5 Mcg Inhaler] 2 puff INHALATION BID 10/07/22 Unk Multi Vitamin 1 tab PO DAILY 10/07/22 HYDROcodone/APAP 5-325MG [[place] 5-325] 1 tab PO BID PRN 30 Days #60 tab 11/08/22 HYDROcodone/APAP 5-325MG [[place] 5-325] 1 tab PO Q12HR PRN 30 Days #60 tab 11/08/22 Controlled Substance Measures - Controlled Substance Measures Is patient prescribed a controlled substance at discharge?: Yes When asked, does pt state using other controlled substances?: No If prescribed controlled substance>3 days was MAPS reviewed?: Yes
== END ==
LOC: PNWHC3 12:21
PROVIDERS: ATTEND Specialist
DX: M51.36 Other intervertebral disc degeneration, lumbar region (principal); M47.816 Spondylosis without myelopathy or radiculopathy, lumbar region; G89.29 Other chronic pain; Z79.891 Long term (current) use of opiate analgesic; Z87.891 Personal history of nicotine dependence
CPT/HCPCS: 99211

== ENCOUNTER → 2022-12-16 | Outpatient (CLI) | payer MEDICARE ==
[2022-12-16 13:02] VITALS: BP 137/78; PULSE 66; RESP 16; TEMP 97.9
--- NOTE | 2022-12-16 13:32 | P.PAINPG ---
PQRS Measure Charge Sheet Comment: A 72 yr old female with a history of severe and chronic LBP x yrs secondary to lumbar DDD and spondylosis with facet arthropathy without myelopathy presents today for medication refills. Pain level is provoked at 5/10 in intensity, constant, localized in the lumbar spine, sharp in character without shooting pain. Pain is provoked by climbing stairs. Pain is alleviated with PT x 6 wks from August-Sep 2022, chiropractic treatments years ago, heat, medications ([place] 5/325mg #60, ASA), reclining, repositioning and rest. Oswestry axial pain score of 20. Interventional pain procedures completed include MAU L5-S1 Patient is currently on [place] 5/325mg #60, ASA Patient denies any side effects of the medication(s), denies excessive drowsiness or sleepiness, denies suicidal ideation and reports that the current pain medication is helping to control the pain and improve activities of daily living. Patient denies any motor or sensory deficits. Patient denies any fever or night sweats, denies any change in the bowel movements or urination. Physical Examination: -Constitutional: Cooperative. Not in acute distress . - Neurologic: Cranial nerve II to XII intact. No focal neurological deficits. - Psychatric: Alert & oriented x 3. Matching mood & appropriate affect. Judgment and insight intact. - Musculoskeletal: Cervical spine: Muscle bulk/ tone/ strength in the bilateral upper extremities normal Vertebral body tenderness to palpation over Spurling test positive Distraction test positive Facet loading test positive TTP Thoracic spine Muscle bulk / tone/ strength in the bilateral paraspinal muscles normal Vertebral body tender to palpation over Facet loading test positive TTP Lumbar spine: Motor bulk/ tone/ strength lower extremities , thigh and legs : 5/5 Deep tendon reflexes : Normal Knee Jerk. Normal Ankle Jerk . Vertebral body tenderness to palpation over L5 Joseph Test positive Lumbar Facet Loading Test positive Straight Leg Raise: positive at 30 degrees right side/ left side Gaenslen's Test positive Sacral spine : Severe tenderness over the Sacroiliac joint: right side / left side Range of motion: Flexion of the lumbar spine <60 degrees Range of motion: Extension of the lumbar spine <20 degrees Gaenslen's Test positive right side / left side Tim test: positive right side / left side Thigh Thrust Test positive right side / left side Sacral Thrust Test positive right side / left side Assessment and plan: Chronic LBP secondary to lumbar DDD, spondylosis with facet arthropathy without myelopathy Recommendation of Caudal MAU w Lysis. May need a series of injections for optimal pain relief. Risks, benefits of procedure discussed and patient verbalized understanding. Protocol for discontinuation/continuation of medications surrounding procedure discussed. Valium 5mg #2 to take 1 hr prior to procedure. Use, side effects, adverse reactions and safe storage discussed. Pt acknowledged understanding. Chronic and current use of high-risk medication (Opioids). The patient was counseled about risk of opioid use, psychological risk associated with opioids and was orally counseled to not overuse , divert or sell medications. Pt is to store medication in a safe location. The patient is counseled against driving while using narcotic medications and also not to use alcohol or any illicit recreational drugs. Patient verbalized understanding that the lack of compliance will result in failure to renew narcotic prescription(s) as well as possible discharge from the clinic Diagnoses, prognosis and treatment options including but not limited to physical therapy, surgical interventions, interventional therapies and medication management including narcotics and adjuvant medication were discussed. All patient questions answered MAPS reviewed and it was appropriate. UDS from 09/13/22 reviewed and consistent. Prescription refill for [place] 5/325mg #60 w 1 RF. I have spent less than 30 minutes on patient care today. Dr Benson was available by phone for the evaluation of this patient. The time was used to review the medical records including relevant urine studies and Prescription history (MAPs), review of the available imaging, evaluation and examination of the patient, coordination of care with the medical staff and if applicable referring physicians, as well as creation of the medical record PQRS Narrative: Hx Alcohol Use (MH) No Home Medications: Ambulatory Orders Metoprolol Succinate [Toprol XL] 25 mg PO DAILY 11/27/14 Albuterol Sulfate [Ventolin HFA] 2 puff INHALATION Q6H PRN 03/20/20 Calcium Carbonate [Calcium] 1,200 mg PO DAILY 03/20/20 Famotidine 20 mg PO BID 03/20/20 Montelukast Sodium [Singulair] 10 mg PO HS 03/20/20 Mag/Aluminum/Sod Bicarb/Alginc [Gaviscon 80-14.2 mg Tab Chew] 2 tab PO DIRECTED PRN 07/21/21 Melatonin [Melatonin ER] 10 mg PO HS 07/21/21 Vitamin B Complex 1 each PO DAILY 07/21/21 polyethylene glycoL 3350 [Miralax] 17 gm PO HS PRN 07/21/21 Cholecalciferol [Vitamin D3 (25 Mcg = 1000 Iu)] 50 mcg PO DAILY 09/28/21 Omeprazole [PriLOSEC] 40 mg PO TH 09/28/21 Budesonide/Formoterol Fumarate [Symbicort 80-4.5 Mcg Inhaler] 2 puff INHALATION BID 10/07/22 Unk Multi Vitamin 1 tab PO DAILY 10/07/22 HYDROcodone/APAP 5-325MG [[place] 5-325] 1 tab PO BID PRN 30 Days #60 tab 12/16/22 HYDROcodone/APAP 5-325MG [[place] 5-325] 1 tab PO Q12HR PRN 30 Days #60 tab 12/16/22 Controlled Substance Measures - Controlled Substance Measures Is patient prescribed a controlled substance at discharge?: Yes When asked, does pt state using other controlled substances?: Yes If prescribed controlled substance>3 days was MAPS reviewed?: Yes
== END ==
LOC: PNWHC3 12:38
PROVIDERS: ATTEND Anesthesiology
DX: M51.36 Other intervertebral disc degeneration, lumbar region (principal); M47.816 Spondylosis without myelopathy or radiculopathy, lumbar region; G89.29 Other chronic pain; Z79.891 Long term (current) use of opiate analgesic; Z87.891 Personal history of nicotine dependence
CPT/HCPCS: 99211

== ENCOUNTER → 2023-02-07 | Outpatient (CLI) | payer MEDICARE ==
--- NOTE | 2023-02-07 11:35 | P.PN ---
Subjective Progress Note Date: 02/07/23 A 72 yr old female with a history of severe and chronic LBP x yrs secondary to lumbar DDD and spondylosis with facet arthropathy without myelopathy presents today for evaluation after caudal epidural steroid injection lysis of epidural adhesions, patient reported that she had minimal benefit from it. Pain level is provoked at 5/10 in intensity, constant, localized in the low back area with radiation to the left buttock. Pain is provoked by climbing stairs. Pain is alleviated with PT x 6 wks from August-Sep 2022, chiropractic treatments years ago, heat, medications ([place] 5/325mg #60, ASA), reclining, repositioning and rest. Oswestry axial pain score of 20. Interventional pain procedures completed include MAU L5-S1 Patient is currently on [place] 5/325mg #60, ASA Patient denies any side effects of the medication(s), denies excessive drowsiness or sleepiness, denies suicidal ideation and reports that the current pain medication is helping to control the pain and improve activities of daily living. Patient denies any motor or sensory deficits. Patient denies any fever or night sweats, denies any change in the bowel movements or urination. Physical Examination: Physical Examinations : -Constitutiona : Cooperative , not in acute distress . -HEENT : nech : supple , no Lymphadenopathy , normal thyroid size . : eyes : no ptosis , no icterus, no photophobia . - neurologic : Cranial nerve II to XII intact , no focal neurological deffecit . -psychatric : alert , oriented X 3 , appropriate affect , intact judgment and insight . -Lymphatic : no Lymphadenopathy . - musculoskeltal : Lumber spine moter stegnth lower extremities ,thigh and legs 5/5 Right side , 5/5 Left side deep tendon reflexes : normal Knee Jerk , normal ankle Jerk lumber facet Loading Test =positive Right , positive Left Range of motion of the lumbar spine Flexion 30 degrees, extension 10 degrees strait leg raising test = positive at 45 degree on the left side Fabere test= positive LT . Sever tenderness over the Sacroiliac joint on the Left sides Gaenslen test= positive left . Seated flexion test= positive Left . Distraction test= positive left Sacroiliac compression test= positive left Assessment and plan: Left sacroiliitis lumbar DDD, spondylosis with facet arthropathy without myelopathy, history of lumbar laminectomy and fusion at the L4 5 Patient had no benefit from caudal epidural steroid injection lysis of epidural adhesions Recommendation of left sacroiliac joint steroid injection Risks, benefits of procedure discussed and patient verbalized understanding. Protocol for discontinuation/continuation of medications surrounding procedure discussed. Valium 5mg #2 to take 1 hr prior to procedure. Use, side effects, adverse reactions and safe storage discussed. Pt acknowledged understanding. Chronic and current use of high-risk medication (Opioids). The patient was counseled about risk of opioid use, psychological risk associated with opioids and was orally counseled to not overuse , divert or sell medications. Pt is to store medication in a safe location. The patient is counseled against driving while using narcotic medications and also not to use alcohol or any illicit recreational drugs. Patient verbalized understanding that the lack of compliance will result in failure to renew narcotic prescription(s) as well as possible discharge from the clinic Diagnoses, prognosis and treatment options including but not limited to physical therapy, surgical interventions, interventional therapies and medication management including narcotics and adjuvant medication were discussed. All patient questions answered MAPS reviewed and it was appropriate. UDS from 09/13/22 reviewed and consistent. Prescription refill for [place] 5/325mg #60 w 1 RF. ( given in the previous visit ) PQRS Narrative: Hx Alcohol Use (MH) No Home Medications: Ambulatory Orders Metoprolol Succinate [Toprol XL] 25 mg PO DAILY 11/27/14 Albuterol Sulfate [Ventolin HFA] 2 puff INHALATION Q6H PRN 03/20/20 Calcium Carbonate [Calcium] 1,200 mg PO DAILY 03/20/20 Famotidine 20 mg PO BID 03/20/20 Montelukast Sodium [Singulair] 10 mg PO HS 03/20/20 Mag/Aluminum/Sod Bicarb/Alginc [Gaviscon 80-14.2 mg Tab Chew] 2 tab PO DIRECTED PRN 07/21/21 Melatonin [Melatonin ER] 10 mg PO HS 07/21/21 Vitamin B Complex 1 each PO DAILY 07/21/21 polyethylene glycoL 3350 [Miralax] 17 gm PO HS PRN 07/21/21 Cholecalciferol [Vitamin D3 (25 Mcg = 1000 Iu)] 50 mcg PO DAILY 09/28/21 Omeprazole [PriLOSEC] 40 mg PO TH 09/28/21 Budesonide/Formoterol Fumarate [Symbicort 80-4.5 Mcg Inhaler] 2 puff INHALATION BID 10/07/22 Unk Multi Vitamin 1 tab PO DAILY 10/07/22 HYDROcodone/APAP 5-325MG [[place] 5-325] 1 tab PO BID PRN 30 Days #60 tab 12/16/22 HYDROcodone/APAP 5-325MG [[place] 5-325] 1 tab PO Q12HR PRN 30 Days #60 tab 12/16/22 Controlled Substance Measures - Controlled Substance Measures Is patient prescribed a controlled substance at discharge?: Yes ( given in the previous visit note prescription was given today ) When asked, does pt state using other controlled substances?: Yes If prescribed controlled substance>3 days was MAPS reviewed?: Yes
[2023-02-07 14:01] VITALS: BP 160/85; PULSE 81; RESP 15; TEMP 98.4
== END ==
LOC: PNWHC3 11:09
PROVIDERS: ATTEND Specialist
DX: M46.1 Sacroiliitis, not elsewhere classified (principal); M51.36 Other intervertebral disc degeneration, lumbar region; M47.816 Spondylosis without myelopathy or radiculopathy, lumbar region; Z79.891 Long term (current) use of opiate analgesic; Z87.891 Personal history of nicotine dependence; Z98.1 Arthrodesis status
CPT/HCPCS: 99211

== ENCOUNTER 2023-02-24 11:26 | Day surgery (SDC) | payer MEDICARE ==
[2023-02-22 10:09] VITALS: BMI 34.2
[2023-02-24 12:13] VITALS: TEMP 97
[2023-02-24] MEDS ORDERED: methylPREDNISolone ACETATE 40 MG/ML 1 ML VIAL ONE (12:48)
[2023-02-24] MEDS ORDERED: ROPIVACAINE 5MG/ML 20ML VIAL ONE (12:48)
[2023-02-24 13:06] VITALS: RESP 16
[2023-02-24 13:32] VITALS: BP 156/76; PULSE 59
--- NOTE | 2023-02-24 13:46 | P.PCN ---
Date of Procedure: 02/24/23 Description of Procedure: Preprocedure diagnosis. Sacroiliac joint arthropathy. Postprocedure diagnosis. As above. Procedure done. left sacroiliac joint injection with local anesthetics and steroid under fluoroscopic guidance. Anesthesia. Local anesthetic infiltration. As per anesthesia department. Blood loss. Minimal. Indication. Discussed the procedure, alternatives, complications which may include infection,bleeding, nerve damage, aggravation of pain which could be permanent. Patient understands and questions were answered. Procedure note. After getting consent patient in OR in prone position. Back prepped with chlorhexidine and draped in sterile manner. After injecting 10 mL of 1% lidocaine subcutaneously, a 22-gauge spinal needle was introduced under tunnel vision of the fluoroscope in the lower and posterior one third of sacroiliac joint. After needle position confirmation by AP and crosstable lateral view, After repeat negative aspiration, 2-1/2 mL solution was injected which consists off one and a half milliliter of 0.5% Ropivacaine mixed with 1 mL of 40 mg Depo-Medrol. In exactly same way left sacroiliac joint was injected with same amount of solution. After the procedure needles were taken out. Bandage applied. Disposition. Patient tolerated the procedure well. No complication. Patient was discharged home in stable condition.
--- NOTE | 2023-02-24 14:01 | FL ---
Fluoroscopy INDICATION: Pain FINDINGS: Fluoroscopy time: 7.6 seconds. Total dose area product (DAP) in uGy*m?, mGy*cm? (or similar): 0.78004 Images obtained: 3. IMPRESSION: 1. Documentation of fluoroscopy.
== END 2023-02-24 13:31 | disposition home or self-care (01) ==
LOC: ORPAIN 11:26
PROVIDERS: ATTEND Pain Medicine Interventional Pain Medicine
DX: M46.1 Sacroiliitis, not elsewhere classified (principal); J45.909 Unspecified asthma, uncomplicated; K21.9 Gastro-esophageal reflux disease without esophagitis; I10 Essential (primary) hypertension; Z79.899 Other long term (current) drug therapy; Z79.51 Long term (current) use of inhaled steroids
CPT/HCPCS: J1030; J2795; G0260; 27096

== ENCOUNTER → 2023-03-28 | Outpatient (CLI) | payer MEDICARE ==
--- NOTE | 2023-03-28 14:46 | P.PAINPG ---
PQRS Measure Charge Sheet Comment: A 72 yr old female with a history of severe and chronic LBP x yrs secondary to lumbar DDD and spondylosis with facet arthropathy, L Sacroiliitis without myelopathy presents today for evaluation s/p L SI injection. Pt stated she experienced 75% pain relief for the last 4 wks s/p procedure. Pain level is pro voked at 6/10 in intensity, constant, predominantly axial, localized in the low back area with radiation to the left buttock. Pain is provoked by climbing stairs. Pain is alleviated with PT x 6 wks from August-Sep 2022, chiropractic treatments years ago, heat, medications, reclining, repositioning and rest. Oswestry axial pain score of 20. Interventional pain procedures completed include MAU L5-S1, L SI x1 Patient is currently on [place] 5/325mg #60, ASA Patient denies any side effects of the medication(s), denies excessive drowsiness or sleepiness, denies suicidal ideation and reports that the current pain medication is helping to control the pain and improve activities of daily living. Patient denies any motor or sensory deficits. Patient denies any fever or night sweats, denies any change in the bowel movements or urination. Physical Examination: -Constitutional: Cooperative. Not in acute distress . - Neurologic: Cranial nerve II to XII intact. No focal neurological deficits . - Psychatric: Alert & oriented x 3. Matching mood & appropriate affect. Judgment and insight intact. - Musculoskeletal: Cervical spine: Muscle bulk/ tone/ strength in the bilateral upper extremities normal Vertebral body tenderness to palpation over Spurling test positive Distraction test positive Facet loading test positive TTP Thoracic spine Muscle bulk / tone/ strength in the bilateral paraspinal muscles normal Vertebral body tender to palpation over Facet loading test positive TTP Lumbar spine: Motor bulk/ tone/ strength lower extremities , thigh and legs : 5/5 Deep tendon reflexes : Normal Knee Jerk. Normal Ankle Jerk . Vertebral body tenderness to palpation over Joseph Test positive Lumbar Facet Loading Test positive Straight Leg Raise: positive at 30 degrees right side/ left side Gaenslen's Test positive Sacral spine : Severe tenderness over the Sacroiliac joint: right side / left side Range of motion: Flexion of the lumbar spine <60 degrees Range of motion: Extension of the lumbar spine <20 degrees Gaenslen's Test positive right side / left side Tmi test: positive right side / left side Thigh Thrust Test positive right side / left side Sacral Thrust Test positive right side / left side Assessment and plan: Left sacroiliitis, Lumbar DDD, spondylosis with facet arthropathy without myelopathy, history of lumbar laminectomy &fusion at the L4-L5 Recommendation of medication management. Chronic and current use of high-risk medication (Opioids). The patient was counseled about risk of opioid use, psychological risk associated with opioids and was orally counseled to not overuse , divert or sell medications. Pt is to store medication in a safe location. The patient is counseled against driving while using narcotic medications and also not to use alcohol or any illicit recreational drugs. Patient verbalized understanding that the lack of compliance will result in failure to renew narcotic prescription(s) as well as possible discharge from the clinic Diagnoses, prognosis and treatment options including but not limited to physical therapy, surgical interventions, interventional therapies and medication management including narcotics and adjuvant medication were discussed. All patient questions answered MAPS reviewed and it was appropriate. UDS collected 03/28/23. Prescription refill for [place] 5/325mg #60 w 1 RF. - Pain Location Left Lower Back Non-Pharmacological Interventions: Heat, Inactivity, Physical Therapy Pharmacological Interventions: Epidural, Scheduled Medication PQRS Narrative: Hx Alcohol Use (MH) No Home Medications: Ambulatory Orders Metoprolol Succinate [Toprol XL] 25 mg PO DAILY 11/27/14 Albuterol Sulfate [Ventolin HFA] 2 puff INHALATION Q6H PRN 03/20/20 Calcium Carbonate [Calcium] 1,200 mg PO DAILY 03/20/20 Famotidine 20 mg PO BID 03/20/20 Montelukast Sodium [Singulair] 10 mg PO HS 03/20/20 Vitamin B Complex 1 each PO DAILY 07/21/21 Omeprazole [PriLOSEC] 40 mg PO TH 09/28/21 Budesonide/Formoterol Fumarate [Symbicort 80-4.5 Mcg Inhaler] 2 puff INHALATION BID 10/07/22 Multivitamins, Thera [Multivitamin (formulary)] 1 tab PO DAILY 12/29/22 HYDROcodone/APAP 5-325MG [[place] 5-325] 1 tab PO BID PRN 30 Days #60 tab 03/28/23 HYDROcodone/APAP 5-325MG [[place] 5-325] 1 tab PO BID PRN 30 Days #60 tab 03/28/23 Controlled Substance Measures - Controlled Substance Measures Is patient prescribed a controlled substance at discharge?: Yes When asked, does pt state using other controlled substances?: No If prescribed controlled substance>3 days was MAPS reviewed?: Yes
[2023-03-28 14:50] VITALS: BP 148/67; PULSE 67; RESP 16; TEMP 98.1
== END ==
LOC: PNWHC3 13:54
PROVIDERS: ATTEND Specialist
DX: M46.1 Sacroiliitis, not elsewhere classified (principal); M51.36 Other intervertebral disc degeneration, lumbar region; M47.816 Spondylosis without myelopathy or radiculopathy, lumbar region; M96.1 Postlaminectomy syndrome, not elsewhere classified; M43.26 Fusion of spine, lumbar region; Z87.891 Personal history of nicotine dependence
CPT/HCPCS: 99212

== ENCOUNTER → 2023-05-23 | Outpatient (CLI) | payer MEDICARE ==
[2023-05-23 13:05] VITALS: BP 142/76; PULSE 77; RESP 15; TEMP 98.4
--- NOTE | 2023-05-23 14:41 | P.PAINPG ---
PQRS Measure Charge Sheet Comment: A 72 yr old female with a history of severe and chronic LBP x yrs secondary to lumbar DDD and spondylosis with facet arthropathy, L Sacroiliitis without myelopathy presents today for medication refills. Pain level is provoked at 3/10 in intensity, constant, predominantly axial, localized in the low back area with radiation to the left buttock. Pain is provoked by climbing stairs. Pain is alleviated with PT x 6 wks from August-Sep 2022, chiropractic treatments years ago, heat, medications, reclining, repositioning and rest. Oswestry axial pain score of 20. Interventional pain procedures completed include MAU L5-S1, L SI x1 Patient is currently on [place] 5/325mg #60, ASA Patient denies any side effects of the medication(s), denies excessive drowsiness or sleepiness, denies suicidal ideation and reports that the current pain medication is helping to control the pain and improve activities of daily living. Patient denies any motor or sensory deficits. Patient denies any fever or night sweats, denies any change in the bowel movements or urination. Physical Examination: -Constitutional: Cooperative. Not in acute distress . - Neurologic: Cranial nerve II to XII intact. No focal neurological deficits. - Psychatric: Alert & oriented x 3. Matching mood & appropriate affect. Judgment and insight intact. - Musculoskeletal: Cervical spine: Muscle bulk/ tone/ strength in the bilateral upper extremities normal Vertebral body tenderness to palpation over Spurling test positive Distraction test positive Facet loading test positive TTP Thoracic spine Muscle bulk / tone/ strength in the bilateral paraspinal muscles normal Vertebral body tender to palpation over Facet loading test positive TTP Lumbar spine: Motor bulk/ tone/ strength lower extremities , thigh and legs : 5/5 Deep tendon reflexes : Normal Knee Jerk. Normal Ankle Jerk . Vertebral body tenderness to palpation over Joseph Test positive Lumbar Facet Loading Test positive Straight Leg Raise: positive at 30 degrees right side/ left side Gaenslen's Test positive Sacral spine : Severe tenderness over the Sacroiliac joint: right side / left side Range of motion: Flexion of the lumbar spine <60 degrees Range of motion: Extension of the lumbar spine <20 degrees Gaenslen's Test positive right side / left side Tim test: positive right side / left side Thigh Thrust Test positive right side / left side Sacral Thrust Test positive right side / left side Assessment and plan: Left sacroiliitis, Lumbar DDD, spondylosis with facet arthropathy without myelopathy, history of lumbar laminectomy &fusion at the L4-L5 Recommendation of medication management. Chronic and current use of high-risk medication (Opioids). The patient was counseled about risk of opioid use, psychological risk associated with opioids and was orally counseled to not overuse , divert or sell medications. Pt is to store medication in a safe location. The patient is counseled against driving while using narcotic medications and also not to use alcohol or any illicit recreational drugs. Patient verbalized understanding that the lack of compliance will result in failure to renew narcotic prescription(s) as well as possible discharge from the clinic Diagnoses, prognosis and treatment options including but not limited to physical therapy, surgical interventions, interventional therapies and medication management including narcotics and adjuvant medication were discuss ed. All patient questions answered MAPS reviewed and it was appropriate. UDS fr 03/28/23 sample not run. Repeat UDS 05/23/23. Prescription refill for [place] 5/325mg #60 w 1 RF. PQRS Narrative: Hx Alcohol Use (MH) No Home Medications: Ambulatory Orders Metoprolol Succinate [Toprol XL] 25 mg PO DAILY 11/27/14 Albuterol Sulfate [Ventolin HFA] 2 puff INHALATION Q6H PRN 03/20/20 Calcium Carbonate [Calcium] 1,200 mg PO DAILY 03/20/20 Famotidine 20 mg PO BID 03/20/20 Montelukast Sodium [Singulair] 10 mg PO HS 03/20/20 Vitamin B Complex 1 each PO DAILY 07/21/21 Omeprazole [PriLOSEC] 40 mg PO TH 09/28/21 Budesonide/Formoterol Fumarate [Symbicort 80-4.5 Mcg Inhaler] 2 puff INHALATION BID 10/07/22 Multivitamins, Thera [Multivitamin (formulary)] 1 tab PO DAILY 12/29/22 HYDROcodone/APAP 5-325MG [[place] 5-325] 1 tab PO BID PRN 30 Days #60 tab 03/28/23 HYDROcodone/APAP 5-325MG [[place] 5-325] 1 tab PO BID PRN 30 Days #60 tab 03/28/23 Controlled Substance Measures - Controlled Substance Measures Is patient prescribed a controlled substance at discharge?: Yes When asked, does pt state using other controlled substances?: No If prescribed controlled substance>3 days was MAPS reviewed?: Yes
== END ==
LOC: PNWHC3 12:24
PROVIDERS: ATTEND Specialist
DX: M46.1 Sacroiliitis, not elsewhere classified (principal); M51.36 Other intervertebral disc degeneration, lumbar region; M47.816 Spondylosis without myelopathy or radiculopathy, lumbar region; Z79.891 Long term (current) use of opiate analgesic; Z98.1 Arthrodesis status; Z87.891 Personal history of nicotine dependence; Z87.39 Personal history of other diseases of the musculoskeletal system and connective tissue
CPT/HCPCS: 80307; G0463; 99211

== ENCOUNTER → 2023-07-18 | Outpatient (CLI) | payer MEDICARE ==
--- NOTE | 2023-07-18 11:45 | P.PAINPG ---
Subjective Progress Note Date: 07/18/23 Principal diagnosis: lumbar back pain, and pain radiating to left lower extremity Mrs. Singh is a 73 -year-old pleasant female came to the [facility] pain clinic for follow-up visit for her lumbar back pain . Patient has ongoing pain for many years. she had lumbar back surgery and fusion. she had a history of left wrist fracture 3 weeks ago. She is taking Narco more frequent regularly since wrist fracture. Before that she is taking 6- 8 pills per week as needed for pain. Patient describes pain is aching, throbbing, constant type of pain. Pain is radiating to left lower extremity causing numbness tingling sensation sometimes. Patient rated pain levels are 4-5 out of 10 in severity. With the help of medications pain levels are 3-4 out of 10 in severity. Activities making pain worse. Medications, resting, pain procedures helping in relieving patient's pain. Patient pain some days better than others. Overall activities decreased secondary to pain. Because of the pain sometimes patient is feeling lack of sleep, interest, and energy. Denied any side effects with the medications. Denied any bowel or bladder problems at this time. Patient is not using any walking aids for walking support. Patient denies any suicidal or homicidal ideations intent or plan. Patient denies any auditory or visual hallucinations. Patient denied any red flag symptoms related to pain. a urine drug test last visit was negative for narcotic medication as per the patient she doesn't take on regular basis only as needed one She has a urine test positive presumptive positive for alcohol screening test as per the examining she admitted that drinks alcohol occasionally at the time she doesn't take her narcotic medications. The patient denied any selling medication, patient denied any noticeable drug diversion or misuse history in the past. Also patient refused from her orthopedic surgeon, and ER visit for narcotic medications as she has enough medications at home for her pain Objective - Vital Signs Vital signs: Intake & Output 07/17/23 07/18/23 07/18/23 18:59 06:59 18:59 Weight 102.058 kg - Exam General: Well-developed, well-nourished, no acute distress HEENT: Normocephalic, and atraumatic Neck: Supple, no neck swelling Psychiatric: Appropriate mood, and affect TELEPHONE CLAIMS REPRESENTATIVE: No focal neurological deficits Musculoskeletal: Upper extremity: Normal strength, and range of motion. Sensation grossly intact Lower extremity: Normal strength, and decreased range of motion secondary to pain Lumbar spine: Paravertebral tenderness: positive Lumbar facet load test : positive Sacroiliac joint tenderness: Positive Thigh thrust test: Positive SI joint compression test: Positive Fabere test: Positive - Constitutional Constitutional Comment(s): 13 point review of symptoms negative except as mentioned in the history of present illness. Assessment and Plan Assessment: lumbar postlaminectomy syndrome Lumbar spondylosis without myelopathy Lumbar radiculopathy left-sided Chronic myofascial pain syndrome History of Recent left wrist injury Plan: 1 Opioid, and psychological risk tools, and scores were reviewed. Diagnoses, prognosis, and multiple treatment options including but not limited to physical therapy, interventional therapy, adjunct medication therapy, narcotic medication, and surgical options were discussed with the patient. And all questions were answered to the patient's satisfaction. #2 Opioid agreement: Patient was thoroughly discussed regarding the medication side effects, complications associated with narcotic use. Patient recommended do not drive while on narcotic medications, any other sedative medications, and illicit drugs including marijuana. Patient clearly understood. Patient has signed narcotic agreement and was again asked to re-read this document and will be given a copy to take home if requested. This document outlines the policies of the [facility]. It specifically counsels the patient to not misuse, overuse, abuse, divert, or sell medications, and to take them as prescribed by only one healthcare provider and store the medications in a safe and preferably locked location. This document also counsels against driving while using narcotic medications and also against using any alcohol or illicit or recreational drugs in conjunction with opioids. The patient verbalized understanding to staff that lack of compliance with any of the above will likely result in failure to renew narcotic prescriptions, possible discharge from the clinic, and possible legal ramifications thereafter. #3 Patient was counseled on importance of regular exercise. Including alec chi, aerobic exercises as tolerated. Which helps for chronic pain, and overall well- being. Patient also counseled regarding importance of weight control rolling chronic pain, and overall other health issues. By altering diet habits, minimizing sugar intake, and processed foods helps in minimizing Inflammation. Also discussed with the patient regarding intermittent fasting. #4 consultation:none at this time #5 investigations: MAPS , urine drug test- reviewed, blood drug screen sent for evaluationas patient unable to hold urine cup secondary to her left wrist injury #6 interventional procedures: none at this time #7 medications #1 [place] 5/325 by mouth daily as needed, as patient using 4-6 pills Narco every 12 hours if needed for a week so dispense 30 pills with no refill. discussed with the patient regarding adjusting the pain medications. Medication side effects, complications, long-term consequences discussed with the patient. Patient recommended to contact the pain clinic if noticed any issues with given medications. #8 morphine milligrams equivalents dose ( MME) per day: 5 #9 TENS unit's, and percussion massage device #10 disposition scheduled to follow up with pain clinic for 4 weeks Patient denies any suicidal or homicidal ideations intent or plan. At this time patient denies any auditory or visual hallucinations. Time with Patient: Less than 30 PQRS Measure Charge Sheet Measure #130: Documentation of Current Meds in Medical Chart: Patient's medications documented in chart Measure #226: Tobacco Use: Screen & Cessation Intervention: Pt screened for tobacco use AND intervention given Measure #111: Pneumonia Vaccination: Pneumococcal vaccine administered or previously received Measure #47: Advance Care Plan: Advance care planning discussed & documented, plan or surrogate given Measure #412: Opioid Treatment Agreement: Documented signed opioid trtmnt agreemnt min once during opioid trtmnt Measure #408: Opioid Therapy Follow-up Evaluation: Patient had f/u eval minimum every 3 months during opioid therapy Measure #317: Preventitive Care & Scrn High Bld Press & F/U: Pre-hypertensive or hypertensive BP documented, pt will f/u with PCP Measure #128: Body Mass Index (BMI) Screening & Follow-up: BMI documented within normal parameters Measure #131: Pain Assessment & Follow-up: Pain positive & plan documented Measure #431: Unhealthy Alcohol Use Preventative Care & Scrn: Patient not identified as an unhealthy alcohol user PQRS Narrative: Hx Alcohol Use (MH) No Home Medications: Ambulatory Orders Metoprolol Succinate [Toprol XL] 25 mg PO DAILY 11/27/14 Albuterol Sulfate [Ventolin HFA] 2 puff INHALATION Q6H PRN 03/20/20 Calcium Carbonate [Calcium] 1,200 mg PO DAILY 03/20/20 Famotidine 20 mg PO BID 03/20/20 Montelukast Sodium [Singulair] 10 mg PO HS 03/20/20 Vitamin B Complex 1 each PO DAILY 07/21/21 Omeprazole [PriLOSEC] 40 mg PO TH 09/28/21 Budesonide/Formoterol Fumarate [Symbicort 80-4.5 Mcg Inhaler] 2 puff INHALATION BID 10/07/22 Multivitamins, Thera [Multivitamin (formulary)] 1 tab PO DAILY 12/29/22 HYDROcodone/APAP 5-325MG [[place] 5-325] 1 tab PO BID PRN 30 Days #60 tab 05/23/23 HYDROcodone/APAP 5-325MG [[place] 5-325] 1 tab PO BID PRN 30 Days #60 tab 05/23/23 Controlled Substance Measures - Controlled Substance Measures Is patient prescribed a controlled substance at discharge?: Yes When asked, does pt state using other controlled substances?: No If prescribed controlled substance>3 days was MAPS reviewed?: Yes If Rx opioid, was Start Talking consent form obtained?: Yes If opioid is for acute pain is fill amount 7 days or less?: No Was information provided regarding opioid addiction?: Yes
[2023-07-18 12:19] VITALS: BP 172/101; PULSE 66; RESP 16; TEMP 96.9
== END ==
LOC: PNWHC3 10:39
PROVIDERS: ATTEND Anesthesiology
DX: M96.1 Postlaminectomy syndrome, not elsewhere classified (principal); M47.26 Other spondylosis with radiculopathy, lumbar region; G89.4 Chronic pain syndrome; M79.18 Myalgia, other site; Z87.828 Personal history of other (healed) physical injury and trauma; Z87.891 Personal history of nicotine dependence; Z71.82 Exercise counseling
CPT/HCPCS: 80307; G0463; 99211

== ENCOUNTER → 2023-08-18 | Outpatient (CLI) | payer MEDICARE ==
[2023-08-18 11:26] VITALS: BP 168/90; PULSE 63; RESP 16
--- NOTE | 2023-08-18 14:34 | P.PAINPG ---
PQRS Measure Charge Sheet Comment: A 73 yr old female with a history of severe and chronic LBP x yrs secondary to lumbar DDD and spondylosis with facet arthropathy, L Sacroiliitis without myelopathy presents today for medication refills. Pain level is provoked at 3/10 in intensity, constant, predominantly axial, localized in the low back area with radiation to the left buttock. Pain is provoked by climbing stairs. Pain is alleviated with PT x 6 wks from August-Sep 2022, chiropractic treatments years ago, heat, medications, reclining, repositioning and rest. Oswestry axial pain score of 20. Interventional pain procedures completed include MAU L5-S1, L SI x1 Patient is currently on [place] 5/325mg #60, ASA Patient denies any side effects of the medication(s), denies excessive drowsiness or sleepiness, denies suicidal ideation and reports that the current pain medication is helping to control the pain and improve activities of daily living. Patient denies any motor or sensory deficits. Patient denies any fever or night sweats, denies any change in the bowel movements or urination. Physical Examination: -Constitutional: Cooperative. Not in acute distress . - Neurologic: Cranial nerve II to XII intact. No focal neurological deficits. - Psychatric: Alert & oriented x 3. Matching mood & appropriate affect. Judgment and insight intact. - Musculoskeletal: Cervical spine: Muscle bulk/ tone/ strength in the bilateral upper extremities normal Vertebral body tenderness to palpation over Spurling test positive Distraction test positive Facet loading test positive TTP Thoracic spine Muscle bulk / tone/ strength in the bilateral paraspinal muscles normal Vertebral body tender to palpation over Facet loading test positive TTP Lumbar spine: Motor bulk/ tone/ strength lower extremities , thigh and legs : 5/5 Deep tendon reflexes : Normal Knee Jerk. Normal Ankle Jerk . Vertebral body tenderness to palpation over Joseph Test positive Lumbar Facet Loading Test positive Straight Leg Raise: positive at 30 degrees right side/ left side Gaenslen's Test positive Sacral spine : Severe tenderness over the Sacroiliac joint: right side / left side Range of motion: Flexion of the lumbar spine <60 degrees Range of motion: Extension of the lumbar spine <20 degrees Gaenslen's Test positive right side / left side Tim test: positive right side / left side Thigh Thrust Test positive right side / left side Sacral Thrust Test positive right side / left side Assessment and plan: Left sacroiliitis, Lumbar DDD, spondylosis with facet arthropathy without myelopathy, history of lumbar laminectomy &fusion at the L4-L5 Recommendation of medication management. Chronic and current use of high-risk medication (Opioids). The patient was counseled about risk of opioid use, psychological risk associated with opioids and was orally counseled to not overuse , divert or sell medications. Pt is to store medication in a safe location. The patient is counseled against driving while using narcotic medications and also not to use alcohol or any illicit recreational drugs. Patient verbalized understanding that the lack of compliance will result in failure to renew narcotic prescription(s) as well as possible discharge from the clinic Diagnoses, prognosis and treatment options including but not limited to physical therapy, surgical interventions, interventional therapies and medication management including narcotics and adjuvant medication were discuss ed. All patient questions answered MAPS reviewed and it was appropriate. Repeat UDS fr 07/18/23 reviewed and consistent. Prescription refill for [place] 5/325mg #60 w 1 RF. PQRS Narrative: Hx Alcohol Use (MH) No Home Medications: Ambulatory Orders Metoprolol Succinate [Toprol XL] 25 mg PO DAILY 11/27/14 Albuterol Sulfate [Ventolin HFA] 2 puff INHALATION Q6H PRN 03/20/20 Calcium Carbonate [Calcium] 1,200 mg PO DAILY 03/20/20 Famotidine 20 mg PO BID 03/20/20 Montelukast Sodium [Singulair] 10 mg PO HS 03/20/20 Vitamin B Complex 1 each PO DAILY 07/21/21 Omeprazole [PriLOSEC] 40 mg PO TH 09/28/21 Budesonide/Formoterol Fumarate [Symbicort 80-4.5 Mcg Inhaler] 2 puff INHALATION BID 10/07/22 Multivitamins, Thera [Multivitamin (formulary)] 1 tab PO DAILY 12/29/22 HYDROcodone/APAP 5-325MG [[place] 5-325] 1 tab PO BID PRN 30 Days #60 tab 08/18/23 HYDROcodone/APAP 5-325MG [[place] 5-325] 1 tab PO BID PRN 30 Days #60 tab 08/18/23 Controlled Substance Measures - Controlled Substance Measures Is patient prescribed a controlled substance at discharge?: Yes When asked, does pt state using other controlled substances?: No If prescribed controlled substance>3 days was MAPS reviewed?: Yes
== END ==
LOC: PNWHC3 10:55
PROVIDERS: ATTEND Specialist
DX: M46.1 Sacroiliitis, not elsewhere classified (principal); M51.36 Other intervertebral disc degeneration, lumbar region; M47.816 Spondylosis without myelopathy or radiculopathy, lumbar region; G89.29 Other chronic pain; M96.1 Postlaminectomy syndrome, not elsewhere classified; M43.26 Fusion of spine, lumbar region; Z79.891 Long term (current) use of opiate analgesic; Z87.891 Personal history of nicotine dependence
CPT/HCPCS: 99211

== ENCOUNTER → 2023-09-26 | Outpatient (CLI) | payer MEDICARE ==
--- NOTE | 2023-09-26 12:59 | XR ---
EXAMINATION TYPE: XR Hip Complete LT DATE OF EXAM: 09/26/2023 COMPARISON: None HISTORY: Pain TECHNIQUE: Left hip is examined in 2 views. FINDINGS: Femoral head articulates with the acetabulum. Joint space is narrowed. No acute fractures a re evident. Degenerative changes are at the sacroiliac joint on the left. Symphysis pubis appears nor mal. Phleboliths within the pelvis. Follow-up exam be performed 7-10 days from acute trauma for continued pain. IMPRESSION: 1. Acute osseous abnormality left hip.
== END | disposition home or self-care (01) ==
LOC: RADBDWWP 09:24
PROVIDERS: ATTEND Family Medicine
DX: M85.80 Other specified disorders of bone density and structure, unspecified site (principal); R10.2 Pelvic and perineal pain
CPT/HCPCS: 73502; 77080

== ENCOUNTER → 2023-10-24 | Outpatient (CLI) | payer MEDICARE ==
[2023-10-24 12:05] VITALS: BP 154/88; PULSE 54; RESP 16; TEMP 97.3
--- NOTE | 2023-10-24 15:11 | P.PAINPG ---
PQRS Measure Charge Sheet Comment: A 73 yr old female with a history of severe and chronic LBP x yrs secondary to lumbar DDD and spondylosis with facet arthropathy, L Sacroiliitis without myelopathy presents today for medication refills. Pain level is provoked at 3 /10 in intensity, constant, predominantly axial, localized in the low back area with radiation to the left buttock. Pain is provoked by climbing stairs. Pain is alleviated with PT x 6 wks from August-Sep 2022, chiropractic treatments years ago, heat, medications, reclining, repositioning and rest. Oswestry axial pain score of 20. Interventional pain procedures completed include MAU L5-S1, L SI x1 Patient is currently on [place] 5/325mg #60, ASA Patient denies any side effects of the medication(s), denies excessive drowsiness or sleepiness, denies suicidal ideation and reports that the current pain medication is helping to control the pain and improve activities of daily living. Patient denies any motor or sensory deficits. Patient denies any fever or night sweats, denies any change in the bowel movements or urination. Physical Examination: -Constitutional: Cooperative. Not in acute distress . - Neurologic: Cranial nerve II to XII intact. No focal neurological deficits. - Psychatric: Alert & oriented x 3. Matching mood & appropriate affect. Judgment and insight intact. - Musculoskeletal: Cervical spine: Muscle bulk/ tone/ strength in the bilateral upper extremities normal Vertebral body tenderness to palpation over Spurling test positive Distraction test positive Facet loading test positive TTP Thoracic spine Muscle bulk / tone/ strength in the bilateral paraspinal muscles normal Vertebral body tender to palpation over Facet loading test positive TTP Lumbar spine: Motor bulk/ tone/ strength lower extremities , thigh and legs : 5/5 Deep tendon reflexes : Normal Knee Jerk. Normal Ankle Jerk . Vertebral body tenderness to palpation over Joseph Test positive Lumbar Facet Loading Test positive Straight Leg Raise: positive at 30 degrees right side/ left side Gaenslen's Test positive Sacral spine : Severe tenderness over the Sacroiliac joint: right side / left side Range of motion: Flexion of the lumbar spine <60 degrees Range of motion: Extension of the lumbar spine <20 degrees Gaenslen's Test positive right side / left side Tim test: positive right side / left side Thigh Thrust Test positive right side / left side Sacral Thrust Test positive right side / left side Assessment and plan: Left sacroiliitis, Lumbar DDD, spondylosis with facet arthropathy without myelopathy, history of lumbar laminectomy &fusion at the L4-L5 Recommendation of medication management. Chronic and current use of high-risk medication (Opioids). The patient was counseled about risk of opioid use, psychological risk associated with opioids and was orally counseled to not overuse , divert or sell medications. Pt is to store medication in a safe location. The patient is counseled against driving while using narcotic medications and also not to use alcohol or any illicit recreational drugs. Patient verbalized understanding that the lack of compliance will result in failure to renew narcotic prescription(s) as well as possible discharge from the clinic Diagnoses, prognosis and treatment options including but not limited to physical therapy, surgical interventions, interventional therapies and medication management including narcotics and adjuvant medication were discuss ed. All patient questions answered MAPS reviewed and it was appropriate. Repeat UDS fr 07/18/23 reviewed and consistent. Prescription refill for [place] 5/325mg #60 w 1 RF. PQRS Narrative: Hx Alcohol Use (MH) No Home Medications: Ambulatory Orders Metoprolol Succinate [Toprol XL] 25 mg PO DAILY 11/27/14 Albuterol Sulfate [Ventolin HFA] 2 puff INHALATION Q6H PRN 03/20/20 Calcium Carbonate [Calcium] 1,200 mg PO DAILY 03/20/20 Famotidine 20 mg PO BID 03/20/20 Montelukast Sodium [Singulair] 10 mg PO HS 03/20/20 Vitamin B Complex 1 each PO DAILY 07/21/21 Omeprazole [PriLOSEC] 40 mg PO TH 09/28/21 Budesonide/Formoterol Fumarate [Symbicort 80-4.5 Mcg Inhaler] 2 puff INHALATION BID 10/07/22 Multivitamins, Thera [Multivitamin (formulary)] 1 tab PO DAILY 12/29/22 HYDROcodone/APAP 5-325MG [[place] 5-325] 1 tab PO BID PRN 30 Days #60 tab 10/24/23 HYDROcodone/APAP 5-325MG [[place] 5-325] 1 tab PO BID PRN 30 Days #60 tab 10/24/23 Controlled Substance Measures - Controlled Substance Measures Is patient prescribed a controlled substance at discharge?: Yes When asked, does pt state using other controlled substances?: No If prescribed controlled substance>3 days was MAPS reviewed?: Yes
== END ==
LOC: PNWHC3 10:53
PROVIDERS: ATTEND Specialist
DX: M51.36 Other intervertebral disc degeneration, lumbar region (principal); M47.816 Spondylosis without myelopathy or radiculopathy, lumbar region; M46.1 Sacroiliitis, not elsewhere classified; M96.1 Postlaminectomy syndrome, not elsewhere classified; M43.26 Fusion of spine, lumbar region; Z79.891 Long term (current) use of opiate analgesic; Z87.891 Personal history of nicotine dependence
CPT/HCPCS: 99211

== ENCOUNTER → 2024-01-09 | Outpatient (CLI) | payer MEDICARE ==
[2024-01-09 11:22] VITALS: BP 161/85; PULSE 63; RESP 16; TEMP 97.1
--- NOTE | 2024-01-09 12:37 | P.PAINPG ---
PQRS Measure Charge Sheet Comment: A 73 yr old female with a history of severe and chronic LBP x yrs secondary to L4-L5 laminectomy/ fusion, L Sacroiliitis without myelopathy presents today for medication refills. Pain level is provoked at 8 /10 in intensity, constant, predominantly axial, localized in the low back area with radiation to the left buttock. Pain is provoked by climbing stairs. Pain is alleviated with PT x 6 wks from August-Sep 2022, chiropractic treatments years ago, heat, medications, reclining, repositioning and rest. Interventional pain procedures completed include MAU L5-S1, L SI x1 Patient is currently on [place] 5/325mg #60, ASA Patient denies any side effects of the medication(s), denies excessive drowsiness or sleepiness, denies suicidal ideation and reports that the current pain medication is helping to control the pain and improve activities of daily living. Patient denies any motor or sensory deficits. Patient denies any fever or night sweats, denies any change in the bowel movements or urination. Physical Examination: -Constitutional: Cooperative. Not in acute distress . - Neurologic: Cranial nerve II to XII intact. No focal neurological deficits. - Psychatric: Alert & oriented x 3. Matching mood & appropriate affect. Judgment and insight intact. - Musculoskeletal: Cervical spine: Muscle bulk/ tone/ strength in the bilateral upper extremities normal Vertebral body tenderness to palpation over Spurling test positive Distraction test positive Facet loading test positive TTP Thoracic spine Muscle bulk / tone/ strength in the bilateral paraspinal muscles normal Vertebral body tender to palpation over Facet loading test positive TTP Lumbar spine: Motor bulk/ tone/ strength lower extremities , thigh and legs : 5/5 Deep tendon reflexes : Normal Knee Jerk. Normal Ankle Jerk . Vertebral body tenderness to palpation over Joseph Test positive Lumbar Facet Loading Test positive Straight Leg Raise: positive at 30 degrees right side/ left side Gaenslen's Test positive Sacral spine : Severe tenderness over the Sacroiliac joint: right side / left side Range of motion: Flexion of the lumbar spine <60 degrees Range of motion: Extension of the lumbar spine <20 degrees Gaenslen's Test positive right side / left side Tim test: positive right side / left side Thigh Thrust Test positive right side / left side Sacral Thrust Test positive right side / left side Assessment and plan: Left sacroiliitis, Lumbar radiculopathy, spondylosis with facet arthropathy without myelopathy, history of lumbar laminectomy/ fusion at the L4- L5 Recommendation of medication management. Chronic and current use of high-risk medication (Opioids). The patient was counseled about risk of opioid use, psychological risk associated with opioids and was orally counseled to not overuse , divert or sell medications. Pt is to store medication in a safe location. The patient is counseled against driving while using narcotic medications and also not to use alcohol or any illicit recreational drugs. Patient verbalized understanding that the lack of compliance will result in failure to renew narcotic prescription(s) as well as possible discharge from the clinic Diagnoses, prognosis and treatment options including but not limited to physical therapy, surgical interventions, interventional therapies and medication management including narcotics and adjuvant medication were discussed. All patient questions answered . Opiate/ narcotic agreement updated on 01/09/24. MAPS reviewed and it was appropriate. Repeat UDS fr 07/18/23 reviewed and consistent. Prescription refill for [place] 5/325mg #60 w 1 RF. PQRS Narrative: Hx Alcohol Use (MH) No Home Medications: Ambulatory Orders Metoprolol Succinate [Toprol XL] 25 mg PO DAILY 11/27/14 Albuterol Sulfate [Ventolin HFA] 2 puff INHALATION Q6H PRN 03/20/20 Calcium Carbonate [Calcium] 1,200 mg PO DAILY 03/20/20 Famotidine 20 mg PO BID 03/20/20 Montelukast Sodium [Singulair] 10 mg PO HS 03/20/20 Vitamin B Complex 1 each PO DAILY 07/21/21 Omeprazole [PriLOSEC] 40 mg PO TH 09/28/21 Budesonide/Formoterol Fumarate [Symbicort 80-4.5 Mcg Inhaler] 2 puff INHALATION BID 10/07/22 Multivitamins, Thera [Multivitamin (formulary)] 1 tab PO DAILY 12/29/22 HYDROcodone/APAP 5-325MG [[place] 5-325] 1 tab PO BID PRN 30 Days #60 tab 10/24/23 HYDROcodone/APAP 5-325MG [[place] 5-325] 1 tab PO BID PRN 30 Days #60 tab 10/24/23 HYDROcodone/APAP 5-325MG [[place] 5-325] 1 tab PO BID PRN 30 Days #60 tab 12/21/23 Controlled Substance Measures - Controlled Substance Measures Is patient prescribed a controlled substance at discharge?: Yes When asked, does pt state using other controlled substances?: No If prescribed controlled substance>3 days was MAPS reviewed?: Yes
== END ==
LOC: PNWHC3 10:56
PROVIDERS: ATTEND Specialist
DX: M54.50 Low back pain, unspecified
CPT/HCPCS: 99211

== ENCOUNTER → 2024-03-28 | Outpatient (CLI) | payer MEDICARE ==
[2024-03-28 12:31] VITALS: BP 150/81; PULSE 62; RESP 16
--- NOTE | 2024-03-28 15:21 | P.PAINPG ---
PQRS Measure Charge Sheet Comment: A 74 yr old female with a history of severe and chronic LBP x yrs secondary to L4-L5 laminectomy/ fusion, L Sacroiliitis without myelopathy presents today for medication refills. Pain level is provoked at 8 /10 in intensity, constant, predominantly axial, localized in the low back area with radiation to the left buttock. Pain is provoked by climbing stairs. Pain is alleviated with acupuncture treatments semi monthly x 3 mo which she is currently in, PT x 6 wks from August-Sep 2022, chiropractic treatments years ago, heat, medications, reclining, repositioning and rest. She hasn't filled her Jetmore in over 1 mo due to the pain relief she is receiving from acupuncture so will check UDS at another visit. Interventional pain procedures completed include MAU L5-S1, L SI x1 Patient is currently on Jetmore 5/325mg #60, ASA Patient denies any side effects of the medication(s), denies excessive drowsiness or sleepiness, denies suicidal ideation and reports that the current pain medication is helping to control the pain and improve activities of daily living. Patient denies any motor or sensory deficits. Patient denies any fever or night sweats, denies any change in the bowel movements or urination. Physical Examination: -Constitutional: Cooperative. Not in acute distress . - Neurologic: Cranial nerve II to XII intact. No focal neurological deficits. - Psychatric: Alert & oriented x 3. Matching mood & appropriate affect. Judgment and insight intact. - Musculoskeletal: Cervical spine: Muscle bulk/ tone/ strength in the bilateral upper extremities normal Vertebral body tenderness to palpation over Spurling test positive Distraction test positive Facet loading test positive TTP Thoracic spine Muscle bulk / tone/ strength in the bilateral paraspinal muscles normal Vertebral body tender to palpation over Facet loading test positive TTP Lumbar spine: Motor bulk/ tone/ strength lower extremities , thigh and legs : 5/5 Deep tendon reflexes : Normal Knee Jerk. Normal Ankle Jerk . Vertebral body tenderness to palpation over Joseph Test positive Lumbar Facet Loading Test positive Straight Leg Raise: positive at 30 degrees right side/ left side Gaenslen's Test positive Sacral spine : Severe tenderness over the Sacroiliac joint: right side / left side Range of motion: Flexion of the lumbar spine <60 degrees Range of motion: Extension of the lumbar spine <20 degrees Gaenslen's Test positive right side / left side Tim test: positive right side / left side Thigh Thrust Test positive right side / left side Sacral Thrust Test positive right side / left side Assessment and plan: Left Sacroiliitis, Lumbar laminectomy/ fusion at the L4-L5 Recommendation of medication management. Chronic and current use of high-risk medication (Opioids). The patient was counseled about risk of opioid use, psychological risk associated with opioids and was orally counseled to not overuse , divert or sell medications. Pt is to store medication in a safe location. The patient is counseled against driving while using narcotic medica tions and also not to use alcohol or any illicit recreational drugs. Patient verbalized understanding that the lack of compliance will result in failure to renew narcotic prescription(s) as well as possible discharge from the clinic Diagnoses, prognosis and treatment options including but not limited to physical therapy, surgical interventions, interventional therapies and medicatio n management including narcotics and adjuvant medication were discussed. All patient questions answered . Opiate/ narcotic agreement updated on 01/09/24. MAPS reviewed and it was appropriate. Repeat UDS fr 07/18/23 reviewed and consistent. Prescription refill for Jetmore 5/325mg #60 w 1 RF. PQRS Narrative: Narcotic Agreement Date Signed 01/09/24 Hx Alcohol Use (MH) No Home Medications: Ambulatory Orders Metoprolol Succinate [Toprol XL] 25 mg PO DAILY 11/27/14 Albuterol Sulfate [Ventolin HFA] 2 puff INHALATION Q6H PRN 03/20/20 Calcium Carbonate [Calcium] 1,200 mg PO DAILY 03/20/20 Montelukast Sodium [Singulair] 10 mg PO HS 03/20/20 Vitamin B Complex 1 each PO DAILY 07/21/21 Omeprazole [PriLOSEC] 40 mg PO TH 09/28/21 Budesonide/Formoterol Fumarate [Symbicort 80-4.5 Mcg Inhaler] 2 puff INHALATION BID 10/07/22 Multivitamins, Thera [Multivitamin (formulary)] 1 tab PO DAILY 12/29/22 Mag/Aluminum/Sod Bicarb/Alginc [Gaviscon 80-14.2 mg Tab Chew] 2 PO PRN 01/09/24 Tiotropium Br/Olodaterol HCl [Stiolto Respimat Inhaler (10)] 1 puff INHALATION 01/09/24 HYDROcodone/APAP 5-325MG [Jetmore 5-325] 1 tab PO BID PRN 30 Days #60 tab 03/28/24 HYDROcodone/APAP 5-325MG [Jet[place] 5-325] 1 tab PO BID PRN 30 Days #60 tab 03/28/24 Controlled Substance Measures - Controlled Substance Measures Is patient prescribed a controlled substance at discharge?: Yes When asked, does pt state using other controlled substances?: No If prescribed controlled substance>3 days was MAPS reviewed?: Yes
== END ==
LOC: PNWHC3 11:09
PROVIDERS: ATTEND Specialist
DX: M46.1 Sacroiliitis, not elsewhere classified (principal); M96.1 Postlaminectomy syndrome, not elsewhere classified; M43.26 Fusion of spine, lumbar region; Z79.891 Long term (current) use of opiate analgesic
CPT/HCPCS: 99211

== ENCOUNTER → 2024-07-23 | Outpatient (CLI) | payer MEDICARE ==
[2024-07-23 10:59] VITALS: BP 149/76; PULSE 68; RESP 17; TEMP 98.1
--- NOTE | 2024-07-23 15:24 | P.PAINPG ---
PQRS Measure Charge Sheet Comment: A 74 yr old female with a history of severe and chronic LBP x yrs secondary to L4-L5 laminectomy/ fusion, L Sacroiliitis without myelopathy presents today for medication refills. Pain level is provoked at 3-6 /10 in intensity, constant, predominantly axial, localized in the low back area with radiation to the left buttock. Pain is provoked by climbing stairs. Pain is alleviated with acupuncture treatments semi monthly x 3 mo which she is currently in, PT x 6 wks from August-Sep 2022, chiropractic treatments years ago, heat, medications, reclining, repositioning and rest. She hasn't filled her [place] in over 1 mo due to the pain relief she is receiving from acupuncture so will check UDS at another visit. Per MAPS, last fill was 03/28/24. Interventional pain procedures completed include MAU L5-S1, L SI x1 Patient is currently on [place] 5/325mg #60, ASA Patient denies any side effects of the medication(s), denies excessive drowsiness or sleepiness, denies suicidal ideation and reports that the current pain medication is helping to control the pain and improve activities of daily living. Patient denies any motor or sensory deficits. Patient denies any fever or night sweats, denies any change in the bowel movements or urination. Physical Examination: -Constitutional: Cooperative. Not in acute distress . - Neurologic: Cranial nerve II to XII intact. No focal neurological deficits. - Psychatric: Alert & oriented x 3. Matching mood & appropriate affect. Judgment and insight intact. - Musculoskeletal: Cervical spine: Muscle bulk/ tone/ strength in the bilateral upper extremities normal Vertebral body tenderness to palpation over Spurling test positive Distraction test positive Facet loading test positive TTP Thoracic spine Muscle bulk / tone/ strength in the bilateral paraspinal muscles normal Vertebral body tender to palpation over Facet loading test positive TTP Lumbar spine: Motor bulk/ tone/ strength lower extremities , thigh and legs : 5/5 Deep tendon reflexes : Normal Knee Jerk. Normal Ankle Jerk . Vertebral body tenderness to palpation over Joseph Test positive Lumbar Facet Loading Test positive Straight Leg Raise: positive at 30 degrees right side/ left side Gaenslen's Test positive Sacral spine : Severe tenderness over the Sacroiliac joint: right side / left side Range of motion: Flexion of the lumbar spine <60 degrees Range of motion: Extension of the lumbar spine <20 degrees Gaenslen's Test positive right side / left side Tim test: positive right side / left side Thigh Thrust Test positive right side / left side Sacral Thrust Test positive right side / left side Assessment and plan: Left Sacroiliitis, Lumbar laminectomy/ fusion at the L4-L5 Recommendation of medication management. Chronic and current use of high-risk medication (Opioids). The patient was counseled about risk of opioid use, psychological risk associated with opioids and was orally counseled to not overuse , divert or sell medications. Pt is to store medication in a safe location. The patient is counseled against driving while using narcotic medications and also not to use alcohol or any illicit recreational drugs. Patient verbalized understanding that the lack of compliance will result in failure to renew narcotic prescription(s) as well as possible discharge from the clinic Diagnoses, prognosis and treatment options including but not limited to physical therapy, surgical interventions, interventional therapies and medication management including narcotics and adjuvant medication were discussed. All patient questions answered . Opiate/ narcotic agreement updated on 01/09/24. MAPS reviewed and it was appropriate. Repeat UDS from 05/28/24 reviewed and consistent. Prescription refill for [place] 5/325mg #60 w 1 RF. I have spent greater than 30 minutes on patient care today. Dr Benson was available by phone for the evaluation of this patient. The time was used to review the medical records including relevant urine studies and Prescription history (MAPs), review of the available imaging, evaluation and examination of the patient, coordination of care with the medical staff and if applicable referring physicians, as well as creation of the medical record - Pain Location Left Lower Back Non-Pharmacological Interventions: Heat Pharmacological Interventions: Medication PQRS Narrative: Narcotic Agreement Date Signed 01/09/24 Hx Alcohol Use (MH) No Home Medications: Ambulatory Orders Metoprolol Succinate [Toprol XL] 25 mg PO DAILY 11/27/14 Albuterol Sulfate [Ventolin HFA] 2 puff INHALATION Q6H PRN 03/20/20 Calcium Carbonate [Calcium] 1,200 mg PO DAILY 03/20/20 Montelukast Sodium [Singulair] 10 mg PO HS 03/20/20 Vitamin B Complex 1 each PO DAILY 07/21/21 Omeprazole [PriLOSEC] 40 mg PO TH 09/28/21 Budesonide/Formoterol Fumarate [Symbicort 80-4.5 Mcg Inhaler] 2 puff INHALATION BID 10/07/22 Multivitamins, Thera [Multivitamin (formulary)] 1 tab PO DAILY 12/29/22 Mag/Aluminum/Sod Bicarb/Alginc [Gaviscon 80-14.2 mg Tab Chew] 2 PO PRN 01/09/24 Tiotropium Br/Olodaterol HCl [Stiolto Respimat Inhaler (10)] 1 puff INHALATION 01/09/24 HYDROcodone/APAP 5-325MG [[place] 5-325] 1 tab PO BID PRN 30 Days #60 tab 07/23/24 HYDROcodone/APAP 5-325MG [[place] 5-325] 1 tab PO BID PRN 30 Days #60 tab 07/23/24 Controlled Substance Measures - Controlled Substance Measures Is patient prescribed a controlled substance at discharge?: Yes When asked, does pt state using other controlled substances?: No If prescribed controlled substance>3 days was MAPS reviewed?: Yes
== END ==
LOC: PNWHC3 10:48
PROVIDERS: ATTEND Specialist
DX: M46.1 Sacroiliitis, not elsewhere classified (principal); M43.26 Fusion of spine, lumbar region; M96.1 Postlaminectomy syndrome, not elsewhere classified; Z87.891 Personal history of nicotine dependence
CPT/HCPCS: 99212

== ENCOUNTER → 2024-09-17 | Outpatient (CLI) | payer MEDICARE ==
[2024-09-17 11:19] VITALS: BP 189/75; PULSE 59; RESP 16; TEMP 96.6
--- NOTE | 2024-09-19 07:32 | P.PAINPG ---
PQRS Measure Charge Sheet Comment: A 74 yr old female with a history of severe and chronic LBP x yrs secondary to L4-L5 laminectomy/ fusion, L Sacroiliitis without myelopathy presents today for medication refills. Pain level is provoked at- 4-6 /10 in intensity, constant, predominantly axial, localized in the lubmar spine with radiation to the LEs. Pain is provoked by climbing stairs. Pain is alleviated with acupuncture treatments semi monthly x 3 mo which she is currently in, PT x 6 wks from August- Sep 2022, chiropractic treatments years ago, heat, medications, reclining, repositioning and rest. She hasn't filled her Morse in over 1 mo due to the pain relief she is receiving from acupuncture so will check UDS at another visit. Per MAPS, last fill was 03/28/24. Interventional pain procedures completed include MAU L5-S1, L SI x1 Patient is currently on Morse 5/325mg #60, ASA Patient denies any side effects of the medication(s), denies excessive drowsiness or sleepiness, denies suicidal ideation and reports that the current pain medication is helping to control the pain and improve activities of daily living. Patient denies any motor or sensory deficits. Patient denies any fever or night sweats, denies any change in the bowel movements or urination. Physical Examination: -Constitutional: Cooperative. Not in acute distress . - Neurologic: Cranial nerve II to XII intact. No focal neurological deficits. - Psychatric: Alert & oriented x 3. Matching mood & appropriate affect. Judgment and insight intact. - Musculoskeletal: Cervical spine: Muscle bulk/ tone/ strength in the bilateral upper extremities normal Vertebral body tenderness to palpation over Spurling test positive Distraction test positive Facet loading test positive TTP Thoracic spine Muscle bulk / tone/ strength in the bilateral paraspinal muscles normal Vertebral body tender to palpation over Facet loading test positive TTP Lumbar spine: Motor bulk/ tone/ strength lower extremities , thigh and legs : 5/5 Deep tendon reflexes : Normal Knee Jerk. Normal Ankle Jerk . Vertebral body tenderness to palpation over Joseph Test positive Lumbar Facet Loading Test positive Straight Leg Raise: positive at 30 degrees right side/ left side Gaenslen's Test positive Sacral spine : Severe tenderness over the Sacroiliac joint: right side / left side Range of motion: Flexion of the lumbar spine <60 degrees Range of motion: Extension of the lumbar spine <20 degrees Gaenslen's Test positive right side / left side Tim test: positive right side / left side Thigh Thrust Test positive right side / left side Sacral Thrust Test positive right side / left side Assessment and plan: Left Sacroiliitis, Lumbar laminectomy/ fusion at the L4-L5 Recommendation of medication management. Chronic and current use of high-risk medication (Opioids). The patient was counseled about risk of opioid use, psychological risk associated with opioids and was orally counseled to not overuse , divert or sell medications. Pt is to store medication in a safe location. The patient is counseled against driving while using narcotic medications and also not to use alcohol or any illicit recreational drugs. Patient verbalized understanding that the lack of compliance will result in failure to renew narcotic prescription(s) as well as possible discharge from the clinic Diagnoses, prognosis and treatment options including but not limited to physical therapy, surgical interventions, interventional therapies and medication management including narcotics and adjuvant medication were discussed. All patient questions answered . Opiate/ narcotic agreement updated on 01/09/24. MAPS reviewed and it was appropriate. Repeat UDS from 05/28/24 reviewed and consistent. Prescription refill for Morse 5/325mg #60 w 1 RF. I have spent greater than 30 minutes on patient care today. Dr Benson was available by phone for the evaluation of this patient. The time was used to review the medical records including relevant urine studies and Prescription history (MAPs), review of the available imaging, evaluation and examination of the patient, coordination of care with the medical staff and if applicable referring physicians, as well as creation of the medical record - Pain Location Bilateral Lower Back Non-Pharmacological Interventions: Exercise, Heat, Home Exercise, Ice, Physical Therapy, Position/Reposition, Stretching Pharmacological Interventions: PRN Medication, Scheduled Medication PQRS Narrative: Narcotic Agreement Date Signed 01/09/24 Hx Alcohol Use (MH) No Home Medications: Ambulatory Orders Metoprolol Succinate [Toprol XL] 25 mg PO DAILY 11/27/14 Albuterol Sulfate [Ventolin HFA] 2 puff INHALATION Q6H PRN 03/20/20 Calcium Carbonate [Calcium] 1,200 mg PO DAILY 03/20/20 Montelukast Sodium [Singulair] 10 mg PO HS 03/20/20 Vitamin B Complex 1 each PO DAILY 07/21/21 Omeprazole [PriLOSEC] 40 mg PO TH 09/28/21 Multivitamins, Thera [Multivitamin (formulary)] 1 tab PO DAILY 12/29/22 Mag/Aluminum/Sod Bicarb/Alginc [Gaviscon 80-14.2 mg Tab Chew] 2 PO PRN 01/09/24 Tiotropium Br/Olodaterol HCl [Stiolto Respimat Inhaler (10)] 1 puff INHALATION 01/09/24 HYDROcodone/APAP 5-325MG [Morse 5-325] 1 tab PO BID PRN 30 Days #60 tab 07/23/24 HYDROcodone/APAP 5-325MG [Morse 5-325] 1 tab PO BID PRN 30 Days #60 tab 07/23/24 Controlled Substance Measures - Controlled Substance Measures Is patient prescribed a controlled substance at discharge?: Yes When asked, does pt state using other controlled substances?: No If prescribed controlled substance>3 days was MAPS reviewed?: Yes
== END ==
LOC: PNWHC3 10:52
PROVIDERS: ATTEND Specialist
DX: M46.1 Sacroiliitis, not elsewhere classified (principal); M43.26 Fusion of spine, lumbar region; Z87.891 Personal history of nicotine dependence; Z98.890 Other specified postprocedural states
CPT/HCPCS: 99212